=== PATIENT | female | born 1945 | race Caucasian/White ===

== ENCOUNTER 2016-10-14 12:40 | Inpatient (IN) ==
[2016-10-14 13:52] LABS: Basophils % 0.2 % (0.0-0.8); Hematocrit 29.7 VOL% (35.7-47.0); Hemoglobin 9.5 GM/DL (12.0-16.0); Immature Granulocytes % 0.5 %; Immature Granulocytes Absolute 0.08 #; Lymphocytes # 0.9 10*3/uL (1.4-4.0); Lymphocytes % 5.6 % (21.3-54.2); Mean Corpuscular Hemoglobin 26 PG (27-34); Mean Corpuscular Volume 79.6 FL (87-102); Mean Platelet Volume 11.8 FL (9.6-12.0); Monocytes # 0.8 10*3/uL (0.11-0.8); Neutrophils # 14.4 10*3/uL (1.4-7.4); Neutrophils % 88.7 % (38.7-73.9); Platelet Count 288 T/CUMM (130-400); Red Blood Count 3.73 MC/CUMM (3.8-5.5); Red Cell Distribution Width 15.3 % (9.3-17.3); White Blood Count 16.2 T/CUMM (4-12)
--- NOTE | 2016-10-14 14:13 | CT Report ---
CT cervical spine wo con Indication: Neck pain. No additional history provided. CT CERVICAL SPINE WITHOUT CONTRAST DLP: 304 mGy*cm. One or more of the following dose reduction techniques was used: Automated exposure control, adjustment of the mA and/or kV according the patient size, or use of iterative reconstruction techniques. Comparison: None Technique: Axial noncontrast CT images of the cervical spine were obtained. Coronal and sagittal reconstructions were provided. Findings: No acute fracture. No subluxation. Disc space narrowing moderate at C3-4 and severe at C5-6. The other disc heights are maintained. No significant bony encroachment on the canal, with mild broad-based endplate osteophyte at C5-C6 flattening the ventral canal slightly. Mild bilateral C5-6 foraminal stenosis. Pulmonary apices are clear. No paraspinous hematoma. No lymphadenopathy. Impression: Degenerative changes. No acute bony injury. PROCEDURE INTERPRETED AT [facility] DEPARTMENT OF RADIOLOGY Final Report Signed by: Yovani Crenshaw M.D.
[2016-10-14] MEDS ORDERED: VANCOMYCIN INJ 1,000 MG in SODIUM CHLORIDE 0.9% 250 ML IV STA (15:27)
--- NOTE | 2016-10-14 15:29 | Emergency Department Note ---
Fan Calderon Brittany, am scribing for, and in the presence of, Dario Bennett MD 13:24. Donald Calderon Doug C, MD, personally performed the services described in this documentation, ascribed by Chloe Chavira in my presence, and it is both accurate and complete 529 . Arrival - Arrival Chief Complaint: Neck Pain / Injury Stated Complaint: pain in neck/stiffness ED Nursing Triage Note: Pt c/o Neck pain with stiffness and increased pain with movement. Denies injury Mode of Arrival: Wheelchair Limitations: No Limitations Source: Patient, RN Notes Reviewed Time Seen by Provider: 10/14/16 13:20 - History of Present Illness HPI Narrative: Patient is a 70-year-old white female who presents to the emergency room complaining of severe neck pain that started 2 days ago. Patient denies any falls or injuries or overexertion that she can think of. She denies any radicular symptoms except for diffuse weakness in her upper extremities. She is not aware of any fever or chills but when she arrived here temperature is 101. She has no history of any malignancies and states has not had any coughing or sore throat. She has had no prior history of neck injury. Onset (ago): day(s) (2) Consistency: constant Severity: moderate Severity scale (1-10): 6 Quality: aching Allergies/Adverse Reactions: Allergies Allergy/AdvReac Type Severity Reaction Status Date / Time morphine Allergy Severe SHORTNESS Verified 03/26/16 08:36 OF BREATH Penicillins Allergy Severe SHORTNESS Verified 03/26/16 08:36 OF BREATH diphenhydramine Allergy Intermediate Anxiety Verified 03/26/16 08:36 [From Benadryl] meperidine [From Demerol] Allergy Intermediate Nausea Verified 03/26/16 08:36 Home Medications: Home Medications Medication Instructions Recorded Confirmed Type Aspirin [Ecotrin] 81 mg PO DAILY 03/26/16 10/14/16 History Pregabalin [Lyrica] 200 mg PO DAILY 03/26/16 10/14/16 History Sertraline [Zoloft] 100 mg PO DAILY 03/26/16 10/14/16 History Sitagliptin Phos/Metformin HCl 1,000 each PO BID 03/26/16 10/14/16 History [Janumet 50-1,000 mg Tablet] Furosemide Tab [Lasix Tab] 40 mg PO DAILY 03/30/16 10/14/16 History Cholecalciferol (Vitamin D3) 1 mg PO QOTHER DAY 04/18/16 10/14/16 History [Vitamin D3] Cyclobenzaprine [Flexeril] 10 mg PO TID 10/14/16 10/14/16 History Review of System - Review of System 12 point system: reviewed and no additional remarkable complaints except as stated - Review of System Constitutional: Present: fever. Absent: chills Eyes: Absent: vision change Head/Ears/Nose/Throat: Absent: nasal drainage, sore throat Respiratory: Absent: respiratory distress Cardiovascular: Absent: chest pain, palpitations Gastrointestinal: Absent: abdominal pain, nausea, vomiting, diarrhea, constipation Genitourinary female: Absent: dysuria, frequency, urgency Musculoskeletal: Present: as per HPI, neck pain. Absent: arm pain, back pain, leg pain Skin: Absent: rash Neurological: Absent: headache Psychiatric: Absent: anxiety, depression Hematological/Lymphatic: Absent: easy bleeding, easy bruising Medical,Surgical,& Family Hx - Medical History Cardio: History of: CAD, [place] Psychological: History of: Anxiety Disorders, Depression Endocrine: History of: Diabetes Mellitus (NIDDM), Dyslipidemia Rheumatology: History of;: Fibromyalgia Genitourinary: History of: Kidney Stones Gastrointestinal: History of: GI Problems (gallstones) Musculoskeletal: History of: Back/Neck Problems, Musculoskeletal Problems - Surgical History Cardiac Surgeries: Sugical HX of: Cardiac Catheterization (STENT X1) Thoracic Surgeries: Patient denies;: Organ Transplant, Lobectomy Neurologic Surgeries: Patient denies: Neurologic Surgery Reproductive Surgeries: Surgical HX of;: Tubal Ligation - Family History Family History: Reports;: Family Cancer (Brother), Family Heart Disease (Father and mother), Family Psychiatric Problems (Brother), Family Stroke (Mother) - Social History Smoking Status: Former smoker Exam Vital Signs: Vital Signs Temperature 101.0 F H 10/14/16 13:53 Pulse Rate 106 H 10/14/16 13:53 Respiratory Rate 18 10/14/16 13:53 Blood Pressure 126/78 10/14/16 13:53 O2 Sat by Pulse Oximetry 93 L 10/14/16 12:53 - General General appearance: alert, in no apparent distress - Head Head exam: Present: atraumatic, normocephalic, normal inspection - Eye Eye exam: Present: normal appearance, PERRL, EOMI - ENT ENT exam: Present: normal exam, normal oropharynx, mucous membranes moist - Neck Neck exam: Present: trachea midline, meningismus. Absent: full ROM (limited secondary to pain), tenderness - Chest Chest inspection: Present: normal inspection, symmetric chest wall rise - Respiratory Respiratory exam: Present: normal lung sounds bilaterally. Absent: rales, rhonchi, wheezes - Cardiovascular Cardiovascular exam: Present: regular rate, normal rhythm, normal heart sounds. Absent: murmur, rubs, gallop - Abdominal Exam Abdominal exam: Present: soft, normal bowel sounds. Absent: distention, tenderness - Extremities Exam Extremities exam: Present: normal inspection - Back Exam Back exam: Present: normal inspection - Neurological Exam Neurological exam: Present: alert, oriented X3, CN II-XII intact, motor sensory deficit (decreased hand sign poster bilaterally), other (upper extremities symmetric) - Psychiatric Psychiatric exam: Present: normal affect - Skin Skin exam: Present: warm, dry Course Course Narrative: Patient's clinical presentation, laboratory and radiograph findings were discussed with Nadiya who is covering for the hospitalist service. She will see the patient emergency room and evaluate for admission. Results - Labs CBC & BMP: 10/14/16 13:43 Lab Results: I have reviewed the patients labs Labs: Laboratory Tests 10/14/16 13:43 WBC 16.2 H RBC 3.73 L Hgb 9.5 L Hct 29.7 L MCV 79.6 L MCH 26 L MCHC 32.0 RDW 15.3 Plt Count 288 MPV 11.8 Neut % (Auto) 88.7 H Lymph % (Auto) 5.6 L [place] % (Auto) 5.0 Eos % (Auto) 0.0 Baso % (Auto) 0.2 Neut # (Auto) 14.4 H Lymph # (Auto) 0.9 L [place] # (Auto) 0.8 Eos # (Auto) 0.0 Baso # (Auto) 0.0 Immature Gran % 0.5 Nucleated RBC % 0.0 Immature Gran # 0.08 Nucleated RBCs # 0.00 Laboratory Tests 10/14/16 13:43 C-Reactive Protein 31.10 H - Diagnostic Findings Procedure: CT: report reviewed by me (Cervical Spine CT: Degenerative changes. No acute bony injury.) Disposition Clinical Impression: Torticollis, Febrile illness, acute Case discussed with: patient Disposition: Still a Patient Condition: Stable Time of Disposition: 15:29
[2016-10-14] MEDS ORDERED: KETOROLAC 30 MG/1 ML VIAL ONE (16:25)
[2016-10-14] MEDS ORDERED: VANCOMYCIN 1,000 MG VIAL ONE (16:35)
[2016-10-14] MEDS ORDERED: KETOROLAC 30 MG/1 ML VIAL IV ONE (16:57)
[2016-10-14] MEDS: ASPIRIN EC 81 MG TABLET PO SCH (17:14)
[2016-10-14] MEDS: SERTRALINE 100 MG TABLET PO SCH (17:14)
[2016-10-14] MEDS: VITAMIN E 1000 UNIT CAPSULE PO SCH (17:14)
[2016-10-14] MEDS: PREGABALIN 100 MG CAPSULE PO SCH (17:14)
[2016-10-14] MEDS: FUROSEMIDE 40 MG TABLET PO SCH (17:14)
[2016-10-14] MEDS ORDERED: GLUCAGON 1 MG VIAL IM PRN (17:19)
[2016-10-14] MEDS ORDERED: DEXTROSE 50% 25 GM/50 ML VIAL IV PRN (17:19)
--- NOTE | 2016-10-14 17:58 | XRay Report ---
XR chest 1V portable Indication: Fever. Chest one view: Comparison 04/13/2016. Heart size and mediastinal contours remain normal. There is calcified atheromatous disease present. No focal infiltrates. Chronic scarring of the infrahilar lungs is stable. Healing or healed right humerus fractures present. Impression: No acute cardiopulmonary disease when compared to 04/13/2016. Right humerus fracture, healed. PROCEDURE INTERPRETED AT [facility] DEPARTMENT OF RADIOLOGY Final Report Signed by: Yovani Crenshaw M.D.
--- NOTE | 2016-10-14 18:27 | Hospitalist History & Physical ---
Assessment and Plan - Time spent with patient Time spent with patient: Less than 30 minutes (1) Leukocytosis Status: Acute Assessment and plan: 70-year-old white female with history of polymyalgia rheumatica, fibromyalgia, diabetes admitted with leukocytosis and febrile illness with acute neck pain. CT scan was negative, chest x-ray negative. UA is pending. She denies urinary symptoms. Patient will be started on Merrem and vancomycin due to penicillin allergy. This will cover a [employer] infection until ruled out. MRI of the head and neck with and without contrast is ordered for in the morning. she also has some degenerative disc disease that is severe in the C4-5 and 6 regions which could be causing some muscle spasms. We will go ahead and order Robaxin, nonnarcotic pain medications, and heating pad for comfort. Labs and blood cultures are still pending. Diabetes--we will restart her home meds other than her metformin. Start sliding scale insulin and monitor accordingly. Polymyalgia rheumatica and fibromyalgia--we will restart her home medicines. This is all been discussed with Dr. Kim the admitting hospitalist. Further recommendations to follow. Current Visit: Yes (2) Neck pain, acute Status: Acute Current Visit: Yes (3) Diabetes mellitus Status: Acute Current Visit: No Qualifiers: Diabetes mellitus type: type 2 Diabetes mellitus complication status: without complication (4) PMR (polymyalgia rheumatica) Status: Chronic Current Visit: No (5) Febrile illness, acute Status: Acute Current Visit: Yes History of Present Illness Chief complaint: Neck pain History of present illness: Ms. Lee is a 70 year old female with history of rheumatoid arthritis, diabetes , and fibromyalgia presenting to the ED with increasing complaints of neck pain. Patient states the pain started about a day and a half ago and is progressively worsened. This morning when she woke up she could not turn her head. And she rates the pain a 10 out of 10 and it is unrelenting. The pain is associated with blurred vision and headaches. She is also complaining of some upper extremity weakness that is new as well. Patient feels like her throat swelled up to the point where she has trouble swallowing but it is not painful when she swallows. Patient denies any trauma or injuries. She denies cough, chest pain, shortness of breath, abdominal pain, back pain, constipation or diarrhea, or lower extremity swelling. Patient CT scan shows no acute fracture and no subluxation. There is disc space narrowing at C3-4 and severe at C5 and 6. There is no bony encroachment on the canal with mild broad-based endplate osteophyte at C5 and 6. She has mild bilateral C5-6 foraminal stenosis. No paraspinous hematoma or lymphadenopathy. Patient's chest x-ray is normal. Patient has a 101 fever with tachycardia in the low 100s and her white count is 16.5. Patient's case has been discussed with ER physician Dr. Bennett and admitting physician Dr. Burns it was felt the patient should be admitted for further evaluation. Home Medications Medication Instructions Recorded Confirmed Type Aspirin [Ecotrin] 81 mg PO DAILY 03/26/16 10/14/16 History Pregabalin [Lyrica] 200 mg PO DAILY 03/26/16 10/14/16 History Sertraline [Zoloft] 100 mg PO DAILY 03/26/16 10/14/16 History Sitagliptin Phos/Metformin HCl 1,000 each PO BID 03/26/16 10/14/16 History [Janumet 50-1,000 mg Tablet] Furosemide Tab [Lasix Tab] 40 mg PO DAILY 03/30/16 10/14/16 History Cholecalciferol (Vitamin D3) 1 mg PO QOTHER DAY 04/18/16 10/14/16 History [Vitamin D3] Cyclobenzaprine [Flexeril] 10 mg PO TID 10/14/16 10/14/16 History Allergies Allergy/AdvReac Type Severity Reaction Status Date / Time morphine Allergy Severe SHORTNESS Verified 03/26/16 08:36 OF BREATH Penicillins Allergy Severe SHORTNESS Verified 03/26/16 08:36 OF BREATH diphenhydramine Allergy Intermediate Anxiety Verified 03/26/16 08:36 [From Benadryl] meperidine [From Demerol] Allergy Intermediate Nausea Verified 03/26/16 08:36 Medical,Surgical,& Family Hx - Medical History Cardio: History of: CAD, [place] Psychological: History of: Anxiety Disorders, Depression Endocrine: History of: Diabetes Mellitus (NIDDM), Dyslipidemia Rheumatology: History of;: Fibromyalgia Genitourinary: History of: Kidney Stones Gastrointestinal: History of: GI Problems (gallstones) Musculoskeletal: History of: Back/Neck Problems, Musculoskeletal Problems - Surgical History Cardiac Surgeries: Sugical HX of: Cardiac Catheterization (STENT X1) Thoracic Surgeries: Patient denies;: Organ Transplant, Lobectomy Neurologic Surgeries: Patient denies: Neurologic Surgery Reproductive Surgeries: Surgical HX of;: Tubal Ligation - Family History Family History: Reports;: Family Cancer (Brother), Family Heart Disease (Father and mother), Family Psychiatric Problems (Brother), Family Stroke (Mother) - Social History Smoking Status: Former smoker Type of Drug Use: None Marital Status: Lives With:: Spouse Review of systems: Complete 10 system review of systems was obtained and pertinent positives and negatives are per HPI. Exam - Constitutional Vitals: Period Temp Pulse Resp BP Sys/Tabor Pulse Ox Last 24 Hr 89 18 123/75 98 Exam: Constitutional System: Mild distress due to pain. No tremulousness. Head: Normocephalic, atraumatic. Ears, Nose and Throat System: No evidence of Otitis or Mastoiditis. No epistaxis or discharge Eyes System: Pupils equal, round, and reactive. Extraocular muscles intact. Neck: Supple, without adenopathy, patient is point tender in the paraspinous region at the base of her skull. She is nontender along the spinous processes. Patient has decreased range of motion of the head and neck limited by pain. No jugular venous distention. No thyromegaly, neck mass, or prior surgery apparent. Respiratory System: Chest clear to auscultation. Cardiovascular System: Heart with regular rate and rhythm. No murmur. GI System: Abdomen soft, nontender. Normo active bowel sounds present. Musculoskeletal System: limbs with no pedal edema. Full distal pulses. Neurological System: No discernable sensory deficit. No aphasia Psychiatric System: Conversation is rational Results - Labs CBC & BMP: 10/14/16 13:43 Lab Results: I have reviewed the past 24 hour labs - Diagnostic Findings Procedure: Chest x-ray: report reviewed by me (No acute process), CT: report reviewed by me (CT of the head showing degenerative disc disease)
[2016-10-14 19:34] LABS: Osmolality,Calculated 276.2 MOS/KG (273-304); Potassium 2.9 MMOL/L (3.5-5.1)
[2016-10-14 19:37] LABS: Apearance,Urine CLOUDY (Clear); Bacteria,Urine Occasional /HPF (Few); Bilirubin,Urine Negative (Negative); Blood, Urine Small mg/dL (Negative); Glucose,Urine (UA) 50 mg/dL (Negative); Hyaline Casts,Urine 7 /LPF (0-3); Ketones,Urine Negative (Negative); Nitrite,Urine Negative (Negative); Protein,Urine Negative; RBC,Urine 8 /HPF (0-4); Renal Epithelial Cells,Urine Occasional /HPF (<1); Squamous Epithelial Cell,Urine Occasional /HPF (0-10); Urine Color Yellow (Yellow); Urine Specific Gravity 1.011 (1.001-1.035); Urine Urobilinogen < 2.0 EU/DL (0.2-1.0); WBC,Urine 8 /HPF (0-6)
[2016-10-14] MEDS: MEROPENEM 500 MG in SODIUM CHLORIDE 0.9% 100 ML IV SCH (20:37)
[2016-10-14] MEDS ORDERED: metFORMIN 500 MG TABLET PO SCH (21:00)
[2016-10-14] MEDS: INSULIN LISPRO 100 UNIT/ML SUBCUT SCH (21:20)
[2016-10-14] MEDS: CYCLOBENZAPRINE 10 MG TABLET PO SCH (21:20)
[2016-10-14] MEDS: sitaGLIPtin 25 MG TABLET PO SCH (21:20)
[2016-10-15] MEDS: traMADol 50 MG TABLET PO PRN ×4 (04:05→17:19)
[2016-10-15 05:28] LABS: Basophils % 0.2 % (0.0-0.8); Eosinophils # 0.1 10*3/uL (0.0-0.87); Eosinophils % 0.8 % (0.00-10.9); Hematocrit 24.3 VOL% (35.7-47.0); Hemoglobin 7.8 GM/DL (12.0-16.0); Immature Granulocytes % 0.5 %; Immature Granulocytes Absolute 0.05 #; Lymphocytes # 1.8 10*3/uL (1.4-4.0); Lymphocytes % 17.8 % (21.3-54.2); Mean Corpuscular HGB Conc 32.1 GM/DL (32-36); Mean Corpuscular Hemoglobin 25 PG (27-34); Mean Corpuscular Volume 78.1 FL (87-102); Mean Platelet Volume 12.1 FL (9.6-12.0); Monocytes % 10.5 % (1.7-12.7); Neutrophils % 70.2 % (38.7-73.9); Platelet Count 249 T/CUMM (130-400); Red Blood Count 3.11 MC/CUMM (3.8-5.5); Red Cell Distribution Width 15.6 % (9.3-17.3); White Blood Count 9.9 T/CUMM (4-12)
[2016-10-15 06:12] LABS: Bilirubin,Total 0.4 MG/DL (0.2-1.0); Osmolality,Calculated 277.1 MOS/KG (273-304); Potassium 2.9 MMOL/L (3.5-5.1); Total Protein 6.3 G/DL (6.4-8.3)
[2016-10-15 08:02] LABS: Basophils % 0.3 % (0.0-0.8); Eosinophils # 0.1 10*3/uL (0.0-0.87); Eosinophils % 0.8 % (0.00-10.9); Hematocrit 26.6 VOL% (35.7-47.0); Hemoglobin 8.3 GM/DL (12.0-16.0); Immature Granulocytes % 0.2 %; Immature Granulocytes Absolute 0.02 #; Lymphocytes # 1.8 10*3/uL (1.4-4.0); Lymphocytes % 18.8 % (21.3-54.2); Mean Corpuscular HGB Conc 31.2 GM/DL (32-36); Mean Corpuscular Hemoglobin 25 PG (27-34); Mean Corpuscular Volume 80.1 FL (87-102); Monocytes # 0.6 10*3/uL (0.11-0.8); Monocytes % 6.8 % (1.7-12.7); Neutrophils # 6.8 10*3/uL (1.4-7.4); Neutrophils % 73.1 % (38.7-73.9); Platelet Count 269 T/CUMM (130-400); Red Blood Count 3.32 MC/CUMM (3.8-5.5); Red Cell Distribution Width 15.6 % (9.3-17.3); White Blood Count 9.3 T/CUMM (4-12)
[2016-10-15] MEDS: sitaGLIPtin 25 MG TABLET PO SCH (08:18)
[2016-10-15] MEDS: FUROSEMIDE 40 MG TABLET PO SCH (08:18)
[2016-10-15] MEDS: INSULIN LISPRO 100 UNIT/ML SUBCUT SCH ×5 (08:18→20:55)
[2016-10-15] MEDS: PREGABALIN 100 MG CAPSULE PO SCH (08:18)
[2016-10-15] MEDS: SERTRALINE 100 MG TABLET PO SCH (08:19)
[2016-10-15] MEDS: CYCLOBENZAPRINE 10 MG TABLET PO SCH ×3 (08:19→20:55)
[2016-10-15] MEDS: ASPIRIN EC 81 MG TABLET PO SCH (08:19)
[2016-10-15] MEDS: MEROPENEM 500 MG in SODIUM CHLORIDE 0.9% 100 ML IV SCH ×2 (08:19→20:55)
[2016-10-15] MEDS ORDERED: POTASSIUM CHLORIDE 20 MEQ PACK PO ONE ×2 (09:51→12:22)
[2016-10-15] MEDS: SODIUM CHLORIDE 0.9% 1,000 ML IV SCH (10:30)
--- NOTE | 2016-10-15 12:11 | Hospitalist Progress Note ---
Assessment and Plan - Time spent with patient Time spent with patient: Greater than 30 minutes (1) Sepsis Status: Acute Assessment and plan: Continue broad-spectrum antibiotics. Infection is not very clear at this point however will order a lumbar puncture for tomorrow. Current Visit: Yes (2) Neck pain, acute Status: Acute Assessment and plan: Awaiting MRI. CT revealed degenerative disease which may likely be the source. Current Visit: Yes (3) Hyponatremia Status: Acute Assessment and plan: Stop Furosemide, start fluid. Current Visit: Yes (4) Hypokalemia Status: Acute Assessment and plan: Administer potassium Current Visit: Yes (5) Hypochloremia Status: Acute Assessment and plan: See above. Current Visit: Yes (6) Acute kidney injury superimposed on CKD Status: Acute Assessment and plan: Stop lasix, start fluids, obtain renal US. Current Visit: Yes (7) Microcytic anemia Status: Acute Assessment and plan: Obtain anemia panel. Current Visit: No (8) Diabetes mellitus Status: Acute Assessment and plan: Continue current management. Current Visit: No Qualifiers: Diabetes mellitus type: type 2 Diabetes mellitus complication status: without complication (9) PMR (polymyalgia rheumatica) Status: Chronic Current Visit: No Hospitalist: Subjective Interval history: No overnight events, continues to complain of pain. Exam - Constitutional Vitals: Period Temp Pulse Resp BP Sys/Tabor Pulse Ox Last 24 Hr 97.8 F-98.8 F 62-94 16-18 92-133/52-75 93-98 General appearance: no acute distress - Head Head exam: Present: normocephalic, atraumatic - Eye Eye exam: Present: EOMI Pupils: Present: MERT - ENT ENT exam: Present: normal exam - Neck Neck exam: Present: normal inspection - Respiratory Respiratory exam: Present: clear to auscultation bilaterally. Absent: rhonchi, wheezes - Cardiovascular Cardiovascular exam: Present: regular rate and rhythm. Absent: gallop, rubs, systolic murmur - GI/Abdominal GI/Abdominal exam: Present: normal bowel sounds, soft. Absent: distended, firm , guarding, tenderness, rebound - Extremities Exam Extremities exam: Present: normal inspection. Absent: calf tenderness, edema Results - Labs CBC & BMP: 10/15/16 06:55 10/15/16 04:54 Lab Results: I have reviewed the past 24 hour labs
--- NOTE | 2016-10-15 13:07 | Ultrasound Report ---
US renal Bilateral Indication: Acute kidney injury. Elevated creatinine. Sepsis. RENAL ULTRASOUND: Grayscale and color Doppler imaging the kidneys performed. Right kidney measures 100 x 46 x 48 mm. Left kidney measures 91 x 56 x 63 mm. No hydronephrosis, mass, cyst or calcification identified on either side. Color Doppler flow at both renal josefina documented. There is a well-defined echogenic homogeneous hyperechoic 27 x 25 x 20 mm lesion along the posterior cortex of the spleen. On a CT PE study from 03/26/2016, this was present and measured 22 mm diameter. Impression: Negative ultrasound the kidneys. Small lesion within the posterior cortex of the spleen, relatively stable since 03/26/2016. Suspect splenic hemangioma. PROCEDURE INTERPRETED AT [facility] DEPARTMENT OF RADIOLOGY Final Report Signed by: Yovani Crenshaw M.D.
[2016-10-15] MEDS: ACETAMINOPHEN 325 MG TABLET PO PRN (20:54)
[2016-10-16] MEDS: SODIUM CHLORIDE 0.9% 1,000 ML IV SCH ×3 (00:44→21:00)
[2016-10-16 06:56] LABS: Basophils % 0.3 % (0.0-0.8); Eosinophils # 0.2 10*3/uL (0.0-0.87); Eosinophils % 1.9 % (0.00-10.9); Hematocrit 23.8 VOL% (35.7-47.0); Hemoglobin 7.5 GM/DL (12.0-16.0); Immature Granulocytes % 0.4 %; Immature Granulocytes Absolute 0.03 #; Lymphocytes # 2.1 10*3/uL (1.4-4.0); Lymphocytes % 26.9 % (21.3-54.2); Mean Corpuscular HGB Conc 31.5 GM/DL (32-36); Mean Corpuscular Hemoglobin 25 PG (27-34); Mean Corpuscular Volume 79.9 FL (87-102); Mean Platelet Volume 11.8 FL (9.6-12.0); Monocytes # 0.7 10*3/uL (0.11-0.8); Monocytes % 8.9 % (1.7-12.7); Neutrophils # 4.9 10*3/uL (1.4-7.4); Neutrophils % 61.6 % (38.7-73.9); Platelet Count 222 T/CUMM (130-400); Red Blood Count 2.98 MC/CUMM (3.8-5.5); Red Cell Distribution Width 15.2 % (9.3-17.3); White Blood Count 7.9 T/CUMM (4-12)
[2016-10-16 07:32] LABS: Calcium 7.9 MG/DL (8.5-10.1); Osmolality,Calculated 279.9 MOS/KG (273-304); Potassium 2.9 MMOL/L (3.5-5.1)
[2016-10-16] MEDS ORDERED: SODIUM CHLORIDE 0.9% 250 ML IV PRN (08:21)
[2016-10-16 08:24] LABS: Alanine Aminotransferase 13 U/L (13-56); Albumin 2.7 G/DL (3.4-5.0); Alkaline Phosphatase 99 U/L (45-117); Aspartate Amino Transferase 16 U/L (0-37); Bilirubin,Total < 0.39 MG/DL (0.2-1.0); Blood Urea Nitrogen 51 MG/DL (7-18); Calcium 7.9 MG/DL (8.5-10.1); Glucose 239 MG/DL (74-106); Osmolality,Calculated 279.9 MOS/KG (273-304); Potassium 2.9 MMOL/L (3.5-5.1); Sodium 129 MMOL/L (136-145); Total Protein 5.8 G/DL (6.4-8.3)
[2016-10-16] MEDS ORDERED: VANCOMYCIN INJ 1,250 MG in SODIUM CHLORIDE 0.9% 250 ML IV SCH (09:00)
[2016-10-16] MEDS: SERTRALINE 100 MG TABLET PO SCH (09:03)
[2016-10-16] MEDS: PREGABALIN 100 MG CAPSULE PO SCH (09:03)
[2016-10-16] MEDS: VITAMIN E 1000 UNIT CAPSULE PO SCH (09:03)
[2016-10-16] MEDS: ASPIRIN EC 81 MG TABLET PO SCH (09:03)
[2016-10-16] MEDS: CYCLOBENZAPRINE 10 MG TABLET PO SCH ×3 (09:04→20:57)
[2016-10-16] MEDS: MEROPENEM 500 MG in SODIUM CHLORIDE 0.9% 100 ML IV SCH ×2 (09:05→20:57)
[2016-10-16] MEDS: INSULIN LISPRO 100 UNIT/ML SUBCUT SCH ×4 (09:23→20:56)
[2016-10-16 09:41] LABS: % Iron Saturation 6.8 % (18-50); Ferritin 60.6 ng/ml (8-252)
[2016-10-16] MEDS: ACETAMINOPHEN 325 MG TABLET PO PRN (09:45)
--- NOTE | 2016-10-16 09:45 | Hospitalist Progress Note ---
Assessment and Plan - Time spent with patient Time spent with patient: Greater than 30 minutes (1) Sepsis Status: Acute Assessment and plan: Resolved. Continue broad-spectrum antibiotics. Infection is not very clear at this point however will order a lumbar puncture. Current Visit: Yes (2) Neck pain, acute Status: Acute Assessment and plan: Awaiting MRI. CT revealed degenerative disease which may likely be the source. Current Visit: Yes (3) Hyponatremia Status: Acute Assessment and plan: Continue fluid. Current Visit: Yes (4) Hypokalemia Status: Acute Assessment and plan: Administer potassium Current Visit: Yes (5) Hypochloremia Status: Acute Assessment and plan: See above. Current Visit: Yes (6) Acute kidney injury superimposed on CKD Status: Acute Assessment and plan: Appears to be stable at current level. May be her new norm. Current Visit: Yes (7) Microcytic anemia Status: Acute Assessment and plan: Appears to be Iron deficiency. Obtain stool heme occults. Administer 2 units prbcs Current Visit: No (8) Diabetes mellitus Status: Acute Assessment and plan: Continue current management. Current Visit: No Qualifiers: Diabetes mellitus type: type 2 Diabetes mellitus complication status: without complication (9) PMR (polymyalgia rheumatica) Status: Chronic Current Visit: No Hospitalist: Subjective Interval history: No new complaints, no overnight events. Exam - Constitutional Vitals: Period Temp Pulse Resp BP Sys/Tabor Pulse Ox Last 24 Hr 97.2 F-98.0 F 71-74 18-20 110-126/58-68 95-99 General appearance: no acute distress - Head Head exam: Present: normocephalic, atraumatic - Eye Eye exam: Present: EOMI Pupils: Present: MERT - ENT ENT exam: Present: normal exam - Neck Neck exam: Present: normal inspection - Respiratory Respiratory exam: Present: clear to auscultation bilaterally. Absent: rhonchi, wheezes - Cardiovascular Cardiovascular exam: Present: regular rate and rhythm. Absent: gallop, rubs, systolic murmur - GI/Abdominal GI/Abdominal exam: Present: normal bowel sounds, soft. Absent: distended, firm , guarding, tenderness, rebound - Extremities Exam Extremities exam: Present: normal inspection. Absent: calf tenderness, edema Results - Labs CBC & BMP: 10/16/16 06:33 10/16/16 06:33 Lab Results: I have reviewed the past 24 hour labs
[2016-10-16 10:03] LABS: Folate 10.1 NG/ML (5.4-24.0)
[2016-10-16] MEDS: POTASSIUM CHLORIDE RIDER 10 MEQ in PREMIX 1 EACH IV SCH ×8 (10:19→18:31)
--- NOTE | 2016-10-16 14:56 | Magnetic Resonance Report ---
Exam: MR head/brain w and wo con Date: 10/16/2016 4:00 AM Comparison: None Indication: Headache, blurred vision upper extremity weakness, Technique:[Multiple acquisitions were obtained including sagittal T1, coronal T1 scans following injection of 18 cc of Dotarem, and axial ADC, diffusion, FLAIR, T2, GRE, and T1 scans before and after injection of contrast. Scans were obtained on a 1.5 Chanda magnet.] Findings: The ventricles are normal in size with no midline displacement. Empty sella with the cerebellar tonsils are normal in their location. No acute infarction is identified on the diffusion scans. No evidence of hemorrhage, mass, extracerebral collection, or abnormal enhancement. Diffuse atrophy and minimal FLAIR/T2 hyperintensities. 3.85 mm retention cyst in the left maxillary sinus with minimal mucosal thickening in the right ethmoid air cells. No acute findings in the orbits, temporal bones, [place], or venous sinuses. Impression: Motion artifact limits exam. No acute infarction identified. Empty sella. Diffuse atrophy with minimal microvascular disease. T2 hyperintensities can also be associated with demyelinating disease, vasculitis, migraines, viral illness, etc. Minimal sinusitis. PROCEDURE INTERPRETED AT [facility] DEPARTMENT OF RADIOLOGY Final Report Signed by: Dr. Lorna Vazquez
--- NOTE | 2016-10-16 15:15 | Magnetic Resonance Report ---
MRI of the cervical spine without and with contrast. Technique: Sagittal T2, sagittal T2 fat-sat, sagittal T1, axial T1, axial T2 and axial gradient echo sequences of the cervical spine were performed without contrast. Sagittal and axial scans were obtained following the injection of 18 cc of Dotarem Post contrast scans were obtained with fat saturation. Scans were obtained on a 1.5 Chanda magnet. Clinical history: Neck pain, upper extremity weakness, abnormal CT Comparison: CT cervical spine 10/14/2016 Findings: The scans are degraded by motion artifact which limits the exam, especially evaluation of the spinal cord on the axial scans. On the sagittal scans no no conclusive spinal cord pathology is identified.. The vertebral bodies maintain a normal height and alignment. No acute fracture with evidence of disc degeneration. The craniocervical junction is unremarkable. Empty sella. C2-3: No disc protrusion or spinal stenosis with minimal left foraminal stenosis. C3-4: Diffuse osteophyte/disc complex which contacts the thecal sac. Disc space narrowing with minimal spinal stenosis and moderate bilateral foraminal stenosis. C4-5: Diffuse osteophyte/disc complex which compresses the thecal sac. Disc space narrowing with minimal spinal stenosis and bilateral foraminal stenosis. C5-6: Diffuse osteophyte/disc complex which compresses the thecal sac. Disc space narrowing with minimal spinal stenosis and moderate to severe bilateral foraminal stenosis. C6-7: Diffuse osteophyte/disc complex which compresses the thecal sac. Minimal spinal stenosis and bilateral foraminal stenosis. C7-T1: No disc protrusion, spinal stenosis, or foraminal stenosis. Impression: Unfortunately the scans are degraded by motion artifact. Probable motion artifact on the axial T2*GRE scans since the spinal cord has a more unremarkable appearance on the additional series. However this finding makes it more difficult to evaluate for possible myelomalacia, demyelinating disease, etc. No acute fracture identified. Multilevel DDD as above noted. Empty sella. PROCEDURE INTERPRETED AT [facility] DEPARTMENT OF RADIOLOGY Final Report Signed by: Dr. Lorna Vazquez
[2016-10-16] MEDS ORDERED: POTASSIUM CHLORIDE RIDER 10 MEQ in PREMIX 1 EACH IV SCH (18:30)
[2016-10-17] MEDS: SODIUM CHLORIDE 0.9% 1,000 ML IV SCH (05:12)
[2016-10-17 06:34] LABS: Calcium 8.1 MG/DL (8.5-10.1); Osmolality,Calculated 287.1 MOS/KG (273-304); Potassium 3.7 MMOL/L (3.5-5.1)
[2016-10-17 06:47] LABS: Basophils % 0.5 % (0.0-0.8); Eosinophils # 0.2 10*3/uL (0.0-0.87); Eosinophils % 2.9 % (0.00-10.9); Hematocrit 21.9 VOL% (35.7-47.0); Immature Granulocytes % 0.3 %; Immature Granulocytes Absolute 0.02 #; Lymphocytes # 1.7 10*3/uL (1.4-4.0); Lymphocytes % 26.6 % (21.3-54.2); Mean Corpuscular Hemoglobin 25 PG (27-34); Mean Corpuscular Volume 79.1 FL (87-102); Mean Platelet Volume 12.1 FL (9.6-12.0); Monocytes # 0.6 10*3/uL (0.11-0.8); Monocytes % 8.9 % (1.7-12.7); Neutrophils # 3.8 10*3/uL (1.4-7.4); Neutrophils % 60.8 % (38.7-73.9); Platelet Count 230 T/CUMM (130-400); Red Blood Count 2.77 MC/CUMM (3.8-5.5); Red Cell Distribution Width 15.3 % (9.3-17.3); White Blood Count 6.2 T/CUMM (4-12)
[2016-10-17] MEDS: INSULIN LISPRO 100 UNIT/ML SUBCUT SCH ×2 (08:45→11:27)
[2016-10-17] MEDS: MEROPENEM 500 MG in SODIUM CHLORIDE 0.9% 100 ML IV SCH (08:45)
[2016-10-17] MEDS: PREGABALIN 100 MG CAPSULE PO SCH (08:46)
[2016-10-17] MEDS: SERTRALINE 100 MG TABLET PO SCH (08:46)
[2016-10-17] MEDS: ASPIRIN EC 81 MG TABLET PO SCH (08:46)
[2016-10-17] MEDS: CYCLOBENZAPRINE 10 MG TABLET PO SCH (08:46)
[2016-10-17] MEDS ORDERED: FERROUS SULFATE 325 MG TABLET PO SCH (09:00)
[2016-10-17] MEDS ORDERED: DOCUSATE SODIUM 100 MG CAPSULE PO SCH (09:00)
[2016-10-17 09:54] VITALS: BP 146/65
--- NOTE | 2016-10-17 10:57 | Discharge Summary ---
Hospital Course - Hospital Course Hospital Course: Ms. Lee is a 70-year-old female who was admitted for evaluation of neck pain and fever. She was found to have acute kidney injury, hyponatremia and hypokalemia. Lasix was discontinued. She was initiated on IV normal saline and broad-spectrum antibiotics. 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 She had a CT of her neck which revealed degenerative disc disease. An MRI of her neck and brain confirmed degenerative disc disease and showed no acute findings however was limited by motion artifact. Patient refused lumbar puncture. Patient had anemia and anemia panel revealed iron deficiency anemia. Her hemoglobin was also noted to drop eventually to 7 however she refused blood products twice. There were no signs of active bleeding. At time of discharge her electrolytes had normalized. Her kidney function responded to the fluids and was 2.8 at discharge. She was encouraged to take Lasix as needed, for lower extremity edema, for no longer than 3 days and to have at least 4 to 7 days of break between the next course. She was prescribed iron tablets for her anemia. At discharge, she was afebrile with no leukocytosis. The source of infection was not identified however the patient will be discharged with Levaquin and clindamycin for an additional 7 days. She was encouraged to return to the emergency department if she felt lightheaded, fainted, developed fever, chest pain, shortness of breath or any sign of bleeding. By discharge she had met maximum benefit of hospitalization. - Time spent with patient Time with patient DS: Greater than 30 minutes Diagnosis - Discharge Diagnosis (1) Sepsis Status: Acute (2) Neck pain, acute Status: Acute (3) Hyponatremia Status: Acute (4) Hypokalemia Status: Acute (5) Hypochloremia Status: Acute (6) Acute kidney injury superimposed on CKD Status: Acute (7) Microcytic anemia Status: Acute (8) Diabetes mellitus Status: Acute (9) PMR (polymyalgia rheumatica) Status: Chronic Discharge Plan - Discharge Data Disposition: Disch To Home/Self Care Condition at Discharge: Stable Discharge Diet: advance to your usual diet Activity: resume usual activities as tolerated Hygiene: no restrictions - Discharge Medications New Docusate Sodium Cap [Colace Cap] 100 mg PO BID #60 capsule Ferrous Sulfate Tab [Feosol Original Tab] 325 mg PO TID #90 tablet Levofloxacin Tab [Levaquin Tab] 250 mg PO DAILY #7 tablet Clindamycin HCl [Clindamycin Cap] 600 mg PO Q6HR #28 capsule HYDROcodone/ACETAMIN 10-325 [[place] 10-325] 1 tablet PO Q4H PRN #30 tablet PRN Reason: Pain Moderate (4-7) Continue Sertraline [Zoloft] 100 mg PO DAILY Aspirin [Ecotrin] 81 mg PO DAILY Sitagliptin Phos/Metformin HCl [Janumet 50-1,000 mg Tablet] 1,000 each PO BID Pregabalin [Lyrica] 200 mg PO DAILY Furosemide Tab [Lasix Tab] 40 mg PO DAILY Cyclobenzaprine [Flexeril] 10 mg PO TID PRN PRN Reason: Muscle Spasm metOLazone [Metolazone] 5 mg DAILY Cholecalciferol (Vitamin D3) [Vitamin D3] 1 mg PO QOTHER DAY - Follow Up or Referral - Forms/Instructions Instructions: Spasmodic Torticollis (DC), Leukocytosis (DC) Exam - Constitutional Vitals: Period Temp Pulse Resp BP Sys/Tabor Pulse Ox Last 24 Hr 97.6 F-98.3 F 60-73 16-18 114-146/57-73 96-100 General appearance: normal weight, no acute distress - Head Head exam: Present: normal inspection, normocephalic, atraumatic - Eye Eye exam: Present: EOMI Pupils: Present: MERT - ENT ENT exam: Present: normal exam - Neck Neck exam: Present: normal inspection - Respiratory Respiratory exam: Present: clear to auscultation bilaterally - Cardiovascular Cardiovascular exam: Present: regular rate and rhythm - GI/Abdominal GI/Abdominal exam: Present: normal bowel sounds - Extremities Exam Extremities exam: Present: normal inspection Discharge Results Procedures and tests throughout hospitalization: Pending Orders 10/16/16 08:02 Fungal Culture w/ Prep Stat 10/16/16 08:47 Red Blood Cells Leuko Red Routine Transferrin Stat Type and Screen Routine 10/16/16 14:00 CSF Culture and Gram Stain Stat Meningitis Ags w/CSF Cult/Smea Stat Viral Culture, Non-Respiratory Stat 10/16/16 22:30 Occult Blood, Stool Stat Labs on day of discharge: Labs from last 24 hours 10/17/16 10/17/16 10/17/16 07:24 05:49 05:49 WBC 6.2 RBC 2.77 L Hgb 7.0 L Hct 21.9 L MCV 79.1 L MCH 25 L MCHC 32.0 RDW 15.3 Plt Count 230 MPV 12.1 H Neut % (Auto) 60.8 Lymph % (Auto) 26.6 [place] % (Auto) 8.9 Eos % (Auto) 2.9 Baso % (Auto) 0.5 Neut # (Auto) 3.8 Lymph # (Auto) 1.7 [place] # (Auto) 0.6 Eos # (Auto) 0.2 Baso # (Auto) 0.0 Immature Gran % 0.3 Nucleated RBC % 0.0 Immature Gran # 0.02 Nucleated RBCs # 0.00 Sodium 135 L Potassium 3.7 Chloride 98 Carbon Dioxide 27 Anion Gap 13.7 BUN 43 H Creatinine 2.80 H POC Creatinine GFR Calculation 19 POC Estimated GFR (eGFR) BUN/Creatinine Ratio 15.00 Glucose 216 H POC Glucose 252 H Calculated Osmolality 287.1 Calcium 8.1 L 10/16/16 10/16/16 10/16/16 20:41 17:01 14:58 WBC RBC Hgb Hct MCV MCH MCHC RDW Plt Count MPV Neut % (Auto) Lymph % (Auto) [place] % (Auto) Eos % (Auto) Baso % (Auto) Neut # (Auto) Lymph # (Auto) [place] # (Auto) Eos # (Auto) Baso # (Auto) Immature Gran % Nucleated RBC % Immature Gran # Nucleated RBCs # Sodium Potassium Chloride Carbon Dioxide Anion Gap BUN Creatinine POC Creatinine GFR Calculation POC Estimated GFR (eGFR) BUN/Creatinine Ratio Glucose POC Glucose 237 H 221 H 264 H Calculated Osmolality Calcium 10/16/16 10/16/16 14:30 10:44 WBC RBC Hgb Hct MCV MCH MCHC RDW Plt Count MPV Neut % (Auto) Lymph % (Auto) [place] % (Auto) Eos % (Auto) Baso % (Auto) Neut # (Auto) Lymph # (Auto) [place] # (Auto) Eos # (Auto) Baso # (Auto) Immature Gran % Nucleated RBC % Immature Gran # Nucleated RBCs # Sodium Potassium Chloride Carbon Dioxide Anion Gap BUN Creatinine POC Creatinine 1.80 H GFR Calculation POC Estimated GFR (eGFR) 30 BUN/Creatinine Ratio Glucose POC Glucose 300 H Calculated Osmolality Calcium Preliminary micro results at discharge 10/14/16 15:46 Blood Culture - Preliminary Blood No growth at 1 day 10/14/16 15:46 Blood Culture - Preliminary Blood No growth at 1 day DS: Provider Date of admission: 10/14/16 15:34 Primary care physician: Jayjay Ellison MD Attending physician on admission: Ruthie Burns MD Consults: 10/16/16 08:31 Consult to [facility], Educator [CONS] Routine Reason for Geology Associate: Re-education Consult Comment: patient refusing insulin Discharging clinician: Ruthie Burns MD Expected date of discharge: 10/17/16
== END 2016-10-17 14:00 | disposition home or self-care (01) | DRG 872 ==
LOC: N.ED 12:40 → N.EDINP 15:34 → N.5E 16:10
PROVIDERS: ADMIT Internal Medicine; ATTEND Internal Medicine

== ENCOUNTER 2017-12-20 11:09 | Inpatient (IN) ==
[~2017-12-20 11:09] MED LIST: ASPIRIN 325 MG TABLET PO ONE; DIAZEPAM 5 MG TABLET PO ONE
[2017-12-20 12:12] LABS: Basophils % 0.2 % (0.0-0.8); Eosinophils # 0.1 10*3/uL (0.0-0.87); Eosinophils % 0.7 % (0.00-10.9); Immature Granulocytes % 0.2 %; Immature Granulocytes Absolute 0.02 #; Lymphocytes # 2.2 10*3/uL (1.4-4.0); Lymphocytes % 22.8 % (21.3-54.2); Mean Corpuscular HGB Conc 32.4 GM/DL (32-36); Mean Corpuscular Hemoglobin 28 PG (27-34); Mean Corpuscular Volume 86.5 FL (87-102); Mean Platelet Volume 11.2 FL (9.6-12.0); Monocytes # 0.6 10*3/uL (0.11-0.8); Monocytes % 6.2 % (1.7-12.7); Neutrophils # 6.7 10*3/uL (1.4-7.4); Neutrophils % 69.9 % (38.7-73.9); Platelet Count 237 T/CUMM (130-400); Red Blood Count 3.93 MC/CUMM (3.8-5.5); Red Cell Distribution Width 14.3 % (9.3-17.3); White Blood Count 9.6 T/CUMM (4-12)
[2017-12-20 12:37] LABS: Calcium 8.7 MG/DL (8.5-10.1); Osmolality,Calculated 294.4 MOS/KG (273-304); Potassium 3.5 MMOL/L (3.5-5.1)
[2017-12-20] MEDS ORDERED: ASPIRIN 325 MG TABLET ONE (12:49)
[2017-12-20] MEDS ORDERED: DIAZEPAM 5 MG TABLET ONE (12:49)
[2017-12-20] MEDS: SODIUM CHLORIDE 0.45% 1,000 ML IV SCH ×3 (12:51→20:40)
[2017-12-20] MEDS ORDERED: HEPARIN/NACL 0.9% 2 UNITS/ML 1,000 ML IV ONE (14:23)
[2017-12-20] MEDS ORDERED: NITROGLYCERIN DRIP 50 MG/250 ML BOTTLE IV ONE (14:37)
[2017-12-20] MEDS ORDERED: LIDOCAINE 1% 20 ML VIAL ONE (14:37)
[2017-12-20] MEDS ORDERED: VERAPAMIL 5 MG/2 ML VIAL ONE (14:38)
[2017-12-20] MEDS ORDERED: MIDAZOLAM 2 MG/2 ML VIAL ONE ×2 (14:39→14:54)
[2017-12-20] MEDS ORDERED: fentaNYL 100 MCG/2 ML VIAL ONE (14:41)
[2017-12-20] MEDS ORDERED: ENOXAPARIN 60 MG/0.6 ML SYRINGE ONE (14:49)
[2017-12-20] MEDS ORDERED: GLUCAGON 1 MG VIAL IM PRN (15:15)
[2017-12-20] MEDS ORDERED: ONDANSETRON 4 MG/2 ML VIAL IV PRN (15:15)
[2017-12-20] MEDS ORDERED: ZALEPLON 5 MG CAPSULE PO PRN (15:15)
[2017-12-20] MEDS ORDERED: DEXTROSE 50% 25 GM/50 ML VIAL IV PRN (15:15)
[2017-12-20] MEDS ORDERED: ACETAMINOPHEN 325 MG TABLET PO PRN (15:15)
[2017-12-20] MEDS ORDERED: NITROGLYCERIN SL 0.4 MG TABLET SL PRN (15:17)
[2017-12-20] MEDS ORDERED: NON-FORMULARY MEDICATION (Dulaglutide [Trulicity] 1.5 MG) SQ SCH (15:30)
[2017-12-20] MEDS ORDERED: MAGNESIUM HYDROXIDE SUSP 30 ML UDCUP PO PRN (17:50)
[2017-12-20] MEDS: INSULIN REGULAR 100 UNIT/ML SUBCUT SCH ×2 (17:56→20:37)
[2017-12-20] MEDS: CARVEDILOL 3.125 MG TABLET PO SCH (20:37)
[2017-12-20] MEDS: ATORVASTATIN 80 MG TABLET PO SCH (20:37)
[2017-12-20] MEDS ORDERED: DIAZEPAM 5 MG TABLET PO PRN (22:59)
[2017-12-21] MEDS: SODIUM CHLORIDE 0.45% 1,000 ML IV SCH ×2 (05:36→10:37)
[2017-12-21 06:14] LABS: Basophils % 0.4 % (0.0-0.8); Eosinophils # 0.1 10*3/uL (0.0-0.87); Eosinophils % 0.8 % (0.00-10.9); Hematocrit 33.1 VOL% (35.7-47.0); Hemoglobin 10.5 GM/DL (12.0-16.0); Immature Granulocytes % 0.2 %; Immature Granulocytes Absolute 0.02 #; Lymphocytes # 2.5 10*3/uL (1.4-4.0); Lymphocytes % 29.9 % (21.3-54.2); Mean Corpuscular HGB Conc 31.7 GM/DL (32-36); Mean Corpuscular Hemoglobin 28 PG (27-34); Mean Corpuscular Volume 86.9 FL (87-102); Monocytes # 0.5 10*3/uL (0.11-0.8); Monocytes % 6.2 % (1.7-12.7); Neutrophils # 5.3 10*3/uL (1.4-7.4); Neutrophils % 62.5 % (38.7-73.9); Platelet Count 224 T/CUMM (130-400); Red Blood Count 3.81 MC/CUMM (3.8-5.5); Red Cell Distribution Width 14.4 % (9.3-17.3); White Blood Count 8.5 T/CUMM (4-12)
[2017-12-21 06:46] LABS: Calcium 8.4 MG/DL (8.5-10.1); Osmolality,Calculated 286.5 MOS/KG (273-304); Potassium 3.6 MMOL/L (3.5-5.1); Risk Ratio 5.56; VLDL CHOLESTEROL 52.8 MG/DL
[2017-12-21] MEDS ORDERED: hydrALAZINE 20 MG/1 ML VIAL IV PRN (07:08)
[2017-12-21] MEDS ORDERED: ASPIRIN EC 81 MG TABLET PO SCH (09:00)
[2017-12-21] MEDS: INSULIN REGULAR 100 UNIT/ML SUBCUT SCH ×4 (10:37→21:20)
[2017-12-21] MEDS: predniSONE 5 MG TABLET PO SCH (10:38)
[2017-12-21] MEDS: CARVEDILOL 3.125 MG TABLET PO SCH ×2 (10:38→21:20)
[2017-12-21] MEDS: amLODIPine 2.5 MG TABLET PO SCH (10:38)
[2017-12-21] MEDS: ENOXAPARIN 100 MG/ML SYRINGE SUBCUT SCH (10:38)
[2017-12-21] MEDS: LOSARTAN 25 MG TABLET PO SCH (10:38)
[2017-12-21] MEDS: PREGABALIN 100 MG CAPSULE PO SCH (10:38)
[2017-12-21] MEDS: ASPIRIN EC 81 MG TABLET PO SCH (10:38)
[2017-12-21] MEDS: PANTOPRAZOLE 40 MG TABLET PO SCH (10:38)
[2017-12-21] MEDS: ISOSORBIDE MONONITRATE 30 MG TABLET PO SCH (10:38)
[2017-12-21] MEDS: SERTRALINE 100 MG TABLET PO SCH (10:39)
[2017-12-21] MEDS ORDERED: DEXTROSE 50% 25 GM/50 ML VIAL IV PRN (11:49)
[2017-12-21] MEDS ORDERED: GLUCAGON 1 MG VIAL IM PRN (11:49)
[2017-12-21] MEDS: CHLORHEXIDINE 4% SOLN 118 ML BOTTLE TOP SCH (17:39)
[2017-12-21] MEDS: SODIUM CHLORIDE 0.9% 1,000 ML IV SCH (17:39)
[2017-12-21] MEDS: ATORVASTATIN 80 MG TABLET PO SCH (21:20)
[2017-12-21] MEDS: CHLORHEXIDINE 0.12% ORAL RINSE 60 ML BOTTLE SWISH/SPIT SCH (21:25)
[2017-12-22 03:49] LABS: ABG Base Excess 0.1 MMOL/L (-2.5-2.5); ABG HCO3 24.5 MMOL/L (20-26); ABG Oxygen Saturation 95.9 % (95-100); ABG PCO2 44.3 MM HG (35-48); ABG PH 7.369 (7.35-7.45); ABG PO2 84.8 MM HG (80-95); ABG TCO2 23.5 MMOL/L (23-27); Allen Test Positive; Pt O2 Delivery Device Room Air
[2017-12-22 05:16] LABS: Basophils % 0.5 % (0.0-0.8); Eosinophils # 0.1 10*3/uL (0.0-0.87); Eosinophils % 0.8 % (0.00-10.9); Hematocrit 31.3 VOL% (35.7-47.0); Hemoglobin 10.1 GM/DL (12.0-16.0); Immature Granulocytes % 0.2 %; Immature Granulocytes Absolute 0.02 #; Lymphocytes # 1.8 10*3/uL (1.4-4.0); Lymphocytes % 21.9 % (21.3-54.2); Mean Corpuscular HGB Conc 32.3 GM/DL (32-36); Mean Corpuscular Hemoglobin 28 PG (27-34); Mean Corpuscular Volume 86.2 FL (87-102); Mean Platelet Volume 11.6 FL (9.6-12.0); Monocytes # 0.5 10*3/uL (0.11-0.8); Monocytes % 6.3 % (1.7-12.7); Neutrophils # 5.9 10*3/uL (1.4-7.4); Neutrophils % 70.3 % (38.7-73.9); Platelet Count 223 T/CUMM (130-400); Red Blood Count 3.63 MC/CUMM (3.8-5.5); Red Cell Distribution Width 14.3 % (9.3-17.3); White Blood Count 8.4 T/CUMM (4-12)
[2017-12-22 05:59] LABS: Albumin 3.1 G/DL (3.4-5.0); Bilirubin,Total 0.4 MG/DL (0.2-1.0); Calcium 8.8 MG/DL (8.5-10.1); Osmolality,Calculated 289.5 MOS/KG (273-304); Potassium 4.5 MMOL/L (3.5-5.1)
[2017-12-22] MEDS: amLODIPine 2.5 MG TABLET PO SCH ×2 (08:22→11:00)
[2017-12-22] MEDS: PREGABALIN 100 MG CAPSULE PO SCH (08:22)
[2017-12-22] MEDS: INSULIN REGULAR 100 UNIT/ML SUBCUT SCH ×4 (08:22→20:26)
[2017-12-22] MEDS: ASPIRIN EC 81 MG TABLET PO SCH (08:22)
[2017-12-22] MEDS: predniSONE 5 MG TABLET PO SCH (08:22)
[2017-12-22] MEDS: CALCIUM (CARBONATE)/VITAMIN D 600 MG-400 UNIT TABLET PO SCH (08:22)
[2017-12-22] MEDS: SERTRALINE 100 MG TABLET PO SCH (08:22)
[2017-12-22] MEDS: LOSARTAN 25 MG TABLET PO SCH ×2 (08:22→10:00)
[2017-12-22] MEDS: CARVEDILOL 3.125 MG TABLET PO SCH ×3 (08:22→20:25)
[2017-12-22] MEDS: ENOXAPARIN 100 MG/ML SYRINGE SUBCUT SCH ×2 (08:22→10:00)
[2017-12-22] MEDS: ISOSORBIDE MONONITRATE 30 MG TABLET PO SCH ×2 (08:22→10:00)
[2017-12-22] MEDS: PANTOPRAZOLE 40 MG TABLET PO SCH (08:22)
[2017-12-22] MEDS: CHLORHEXIDINE 0.12% ORAL RINSE 60 ML BOTTLE SWISH/SPIT SCH ×2 (09:04→20:29)
[2017-12-22] MEDS: CLORAZEPATE 3.75 MG TABLET PO PRN ×2 (10:00→20:25)
[2017-12-22] MEDS: SODIUM CHLORIDE 0.9% 1,000 ML IV SCH (12:06)
[2017-12-22] MEDS: CHLORHEXIDINE 4% SOLN 118 ML BOTTLE TOP SCH (17:50)
[2017-12-22] MEDS: ATORVASTATIN 80 MG TABLET PO SCH (20:25)
[2017-12-23 05:36] LABS: Basophils % 0.4 % (0.0-0.8); Eosinophils # 0.1 10*3/uL (0.0-0.87); Eosinophils % 1.5 % (0.00-10.9); Hematocrit 29.1 VOL% (35.7-47.0); Hemoglobin 9.1 GM/DL (12.0-16.0); Immature Granulocytes % 0.3 %; Immature Granulocytes Absolute 0.02 #; Lymphocytes # 2.5 10*3/uL (1.4-4.0); Lymphocytes % 36.7 % (21.3-54.2); Mean Corpuscular HGB Conc 31.3 GM/DL (32-36); Mean Corpuscular Hemoglobin 28 PG (27-34); Mean Corpuscular Volume 88.7 FL (87-102); Mean Platelet Volume 11.6 FL (9.6-12.0); Monocytes # 0.5 10*3/uL (0.11-0.8); Neutrophils # 3.6 10*3/uL (1.4-7.4); Neutrophils % 53.1 % (38.7-73.9); Platelet Count 201 T/CUMM (130-400); Red Blood Count 3.28 MC/CUMM (3.8-5.5); Red Cell Distribution Width 14.3 % (9.3-17.3); White Blood Count 6.8 T/CUMM (4-12)
[2017-12-23 06:05] LABS: Calcium 9.1 MG/DL (8.5-10.1); Osmolality,Calculated 291.8 MOS/KG (273-304); Potassium 5.2 MMOL/L (3.5-5.1)
[2017-12-23] MEDS: PANTOPRAZOLE 40 MG TABLET PO SCH (09:02)
[2017-12-23] MEDS: INSULIN REGULAR 100 UNIT/ML SUBCUT SCH ×4 (09:05→20:19)
[2017-12-23] MEDS: CARVEDILOL 3.125 MG TABLET PO SCH ×2 (09:05→20:19)
[2017-12-23] MEDS: amLODIPine 2.5 MG TABLET PO SCH (09:05)
[2017-12-23] MEDS: predniSONE 5 MG TABLET PO SCH (09:05)
[2017-12-23] MEDS: LOSARTAN 25 MG TABLET PO SCH (09:05)
[2017-12-23] MEDS: ISOSORBIDE MONONITRATE 30 MG TABLET PO SCH (09:05)
[2017-12-23] MEDS: ASPIRIN EC 81 MG TABLET PO SCH (09:05)
[2017-12-23] MEDS: CHLORHEXIDINE 0.12% ORAL RINSE 60 ML BOTTLE SWISH/SPIT SCH ×2 (09:05→20:19)
[2017-12-23] MEDS: PREGABALIN 100 MG CAPSULE PO SCH (09:05)
[2017-12-23] MEDS: CLORAZEPATE 3.75 MG TABLET PO PRN ×2 (09:05→20:19)
[2017-12-23] MEDS: SERTRALINE 100 MG TABLET PO SCH (09:05)
[2017-12-23] MEDS: ENOXAPARIN 100 MG/ML SYRINGE SUBCUT SCH (10:26)
[2017-12-23] MEDS ORDERED: CEFUROXIME INJ 1,500 MG in SYRINGE 1 EACH IV ONE (11:49)
[2017-12-23] MEDS: SODIUM CHLORIDE 0.9% 1,000 ML IV SCH (13:35)
[2017-12-23] MEDS: CHLORHEXIDINE 4% SOLN 118 ML BOTTLE TOP SCH ×2 (14:00→20:19)
[2017-12-23] MEDS: ATORVASTATIN 80 MG TABLET PO SCH (20:19)
[2017-12-24 04:48] LABS: Basophils % 0.4 % (0.0-0.8); Eosinophils # 0.1 10*3/uL (0.0-0.87); Eosinophils % 0.9 % (0.00-10.9); Hematocrit 27.8 VOL% (35.7-47.0); Hemoglobin 9.2 GM/DL (12.0-16.0); Immature Granulocytes % 0.3 %; Immature Granulocytes Absolute 0.02 #; Lymphocytes % 28.9 % (21.3-54.2); Mean Corpuscular HGB Conc 33.1 GM/DL (32-36); Mean Corpuscular Hemoglobin 28 PG (27-34); Mean Corpuscular Volume 84.5 FL (87-102); Mean Platelet Volume 11.6 FL (9.6-12.0); Monocytes # 0.5 10*3/uL (0.11-0.8); Monocytes % 6.9 % (1.7-12.7); Neutrophils # 4.3 10*3/uL (1.4-7.4); Neutrophils % 62.6 % (38.7-73.9); Platelet Count 202 T/CUMM (130-400); Red Blood Count 3.29 MC/CUMM (3.8-5.5); Red Cell Distribution Width 14.4 % (9.3-17.3); White Blood Count 6.8 T/CUMM (4-12)
[2017-12-24] MEDS: CHLORHEXIDINE 4% SOLN 118 ML BOTTLE TOP SCH (04:57)
[2017-12-24 05:03] LABS: Calcium 8.8 MG/DL (8.5-10.1); Potassium 4.1 MMOL/L (3.5-5.1)
[2017-12-24] MEDS ORDERED: VANCOMYCIN 1,000 MG VIAL ONE (05:23)
[2017-12-24] MEDS ORDERED: PAPAVERINE 60 MG/2 ML VIAL ONE (05:23)
[2017-12-24] MEDS ORDERED: FAMOTIDINE 20 MG TABLET PO ONE (05:30)
[2017-12-24] MEDS ORDERED: DIAZEPAM 5 MG TABLET PO ONE (05:30)
[2017-12-24] MEDS: CARVEDILOL 3.125 MG TABLET PO SCH ×2 (05:43→11:09)
[2017-12-24] MEDS: amLODIPine 2.5 MG TABLET PO SCH ×2 (05:43→11:09)
[2017-12-24] MEDS: ISOSORBIDE MONONITRATE 30 MG TABLET PO SCH ×2 (05:43→11:09)
[2017-12-24 07:48] LABS: ABG Base Excess 0.5 MMOL/L (-2.5-2.5); ABG HCO3 24.9 MMOL/L (20-26); ABG Oxygen Saturation 98.2 % (95-100); ABG PCO2 32.9 MM HG (35-48); ABG PH 7.467 (7.35-7.45); ABG TCO2 21.9 MMOL/L (23-27); Glucose Heart Surgery 142 MG/DL (74-106); Hematocrit Heart Surgery 27.7 PERCENT (37-47); Hemoglobin Heart Surgery 8.9 G/DL (12.0-16.0); Ionized Calcium Arterial 1.23 MMOL/L (1.21-1.46); PCO2 Patient Temp Arterial 32.9 MMHG; PH Patient Temp Arterial 7.467; Patient Temperature 37 CELCIUS; Potassium Heart/CVR 3.9 MMOL/L (3.5-5.1); Sodium Heart/CVR 142 MMOL/L (135-145)
[2017-12-24] MEDS ORDERED: PHENYLEPHRINE DRIP 40 MG/250 ML PREMIX IV ONE (08:31)
[2017-12-24] MEDS ORDERED: NITROPRUSSIDE 50 MG/2 ML VIAL ONE (08:31)
[2017-12-24] MEDS ORDERED: ALBUMIN 5% 12.5 GM/250 ML VIAL IV ONE ×2 (08:32→11:12)
[2017-12-24] MEDS ORDERED: POTASSIUM CHLORIDE RIDER 100 ML IV ONE (08:32)
[2017-12-24 08:41] LABS: Apearance,Urine CLEAR (Clear); Bilirubin,Urine Negative (Negative); Blood, Urine Negative (Negative); Glucose,Urine (UA) Negative (Negative); Ketones,Urine Negative (Negative); Mucus,Urine Occasional /LPF (Occasional); Nitrite,Urine Negative (Negative); Protein,Urine Negative; Squamous Epithelial Cell,Urine Occasional /HPF (0-10); Urine Color Yellow (Yellow); Urine Specific Gravity 1.016 (1.001-1.035); Urine Urobilinogen < 2.0 EU/DL (0.2-1.0); WBC,Urine 1 /HPF (0-6)
[2017-12-24 09:33] LABS: Hematocrit Heart Surgery 27.7 PERCENT (37-47); Hemoglobin Heart Surgery 8.9 G/DL (12.0-16.0); PH Patient Temp Venous 7.393; PO2 Patient Temp Venous 41.4 MM HG; Potassium Heart/CVR 4.4 MMOL/L (3.5-5.1); VBG Base Excess -0.4 MEQ/L (0-4); VBG HCO3 23.8 MEQ/L (24-28); VBG Oxygen Saturation 78.6 %; VBG PH 7.393; VBG PO2 41.4 MMHG (17-40)
[2017-12-24 10:08] LABS: Hematocrit Heart Surgery 25.9 PERCENT (37-47); Hemoglobin Heart Surgery 8.3 G/DL (12.0-16.0); PCO2 Patient Temp Venous 29.5 MM HG; PH Patient Temp Venous 7.504; PO2 Patient Temp Venous 30.8 MM HG; Potassium Heart/CVR 4.4 MMOL/L (3.5-5.1); VBG Base Excess 0.6 MEQ/L (0-4); VBG HCO3 24.7 MEQ/L (24-28); VBG Oxygen Saturation 76.4 %; VBG PCO2 34.1 MMHG (41-51); VBG PH 7.459
[2017-12-24 10:38] LABS: Hematocrit Heart Surgery 27.6 PERCENT (37-47); Hemoglobin Heart Surgery 8.9 G/DL (12.0-16.0); PCO2 Patient Temp Venous 32.9 MM HG; PH Patient Temp Venous 7.472; PO2 Patient Temp Venous 36.1 MM HG; Potassium Heart/CVR 5.5 MMOL/L (3.5-5.1); VBG Base Excess 0.8 MEQ/L (0-4); VBG HCO3 24.8 MEQ/L (24-28); VBG Oxygen Saturation 75.8 %; VBG PCO2 32.9 MMHG (41-51); VBG PH 7.472; VBG PO2 36.1 MMHG (17-40)
[2017-12-24] MEDS: INSULIN REGULAR 100 UNIT/ML SUBCUT SCH ×2 (11:08→19:46)
[2017-12-24] MEDS: CHLORHEXIDINE 0.12% ORAL RINSE 60 ML BOTTLE SWISH/SPIT SCH ×2 (11:09→20:20)
[2017-12-24] MEDS: CALCIUM (CARBONATE)/VITAMIN D 600 MG-400 UNIT TABLET PO SCH (11:09)
[2017-12-24] MEDS: PREGABALIN 100 MG CAPSULE PO SCH (11:09)
[2017-12-24] MEDS: ASPIRIN EC 81 MG TABLET PO SCH (11:09)
[2017-12-24] MEDS: predniSONE 5 MG TABLET PO SCH (11:10)
[2017-12-24] MEDS: SERTRALINE 100 MG TABLET PO SCH (11:10)
[2017-12-24] MEDS: PANTOPRAZOLE 40 MG TABLET PO SCH (11:10)
[2017-12-24] MEDS ORDERED: MAGNESIUM SULFATE 1 GM/2 ML VIAL ONE (11:11)
[2017-12-24] MEDS ORDERED: ALBUMIN 25% 25 GM/100 ML VIAL IV ONE (11:11)
[2017-12-24] MEDS ORDERED: PROTAMINE SULFATE 250 MG/25 ML VIAL IV ONE (11:11)
[2017-12-24] MEDS ORDERED: DEXTROSE 5% KCL 20 MEQ 20 MEQ/1,000 ML BAG IV ONE (11:11)
[2017-12-24] MEDS ORDERED: SODIUM BICARBONATE 50 MEQ/50 ML SYRINGE IV ONE (11:11)
[2017-12-24] MEDS ORDERED: methylPREDNISolone SOD SUC 1,000 MG/8 ML VIAL ONE (11:12)
[2017-12-24] MEDS ORDERED: HEPARIN 10,000 UNIT/10 ML VIAL ONE (11:12)
[2017-12-24] MEDS ORDERED: MANNITOL 12.5 GM/50 ML VIAL IV ONE (11:12)
[2017-12-24] MEDS ORDERED: FUROSEMIDE 20 MG/2 ML VIAL ONE (11:13)
[2017-12-24] MEDS ORDERED: POTASSIUM CHLORIDE 20 MEQ/10 ML VIAL ONE (11:13)
[2017-12-24 11:15] LABS: ABG Base Excess -0.4 MMOL/L (-2.5-2.5); ABG HCO3 23.2 MMOL/L (20-26); ABG Oxygen Saturation 94.8 % (95-100); ABG PCO2 33.6 MM HG (35-48); ABG PH 7.457 (7.35-7.45); ABG PO2 77.8 MM HG (80-95); ABG TCO2 24.2 MMOL/L (23-27); Glucose Heart Surgery 270 MG/DL (74-106); Hemoglobin Heart Surgery 8.4 G/DL (12.0-16.0); Ionized Calcium Arterial 1.21 MMOL/L (1.21-1.46); PCO2 Patient Temp Arterial 33.6 MMHG; PH Patient Temp Arterial 7.457; PO2 Patient Temp Arterial 77.8 MM HG; Patient Temperature 37 CELCIUS; Potassium Heart/CVR 4.6 MMOL/L (3.5-5.1); Sodium Heart/CVR 136 MMOL/L (135-145)
[2017-12-24 11:24] LABS: ABG Base Excess -1.7 MMOL/L (-2.5-2.5); ABG Oxygen Saturation 99.7 % (95-100); ABG PCO2 35.8 MM HG (35-48); ABG PH 7.408 (7.35-7.45); Glucose Heart Surgery 264 MG/DL (74-106); Hematocrit Heart Surgery 26.3 PERCENT (37-47); Hemoglobin Heart Surgery 8.5 G/DL (12.0-16.0); Ionized Calcium Arterial 1.15 MMOL/L (1.21-1.46); PCO2 Patient Temp Arterial 35.8 MMHG; PH Patient Temp Arterial 7.408; Patient Temperature 37 CELCIUS; Potassium Heart/CVR 4.2 MMOL/L (3.5-5.1); Sodium Heart/CVR 137 MMOL/L (135-145)
[2017-12-24] MEDS ORDERED: EPINEPHrine 1 MG/ML VIAL ONE ×2 (12:03→13:15)
[2017-12-24] MEDS ORDERED: NITROGLYCERIN DRIP 50 MG/250 ML BOTTLE IV ONE ×2 (12:42→13:16)
[2017-12-24] MEDS ORDERED: POTASSIUM CHLORIDE RIDER 10 MEQ in PREMIX 1 EACH IV PRN (13:05)
[2017-12-24] MEDS ORDERED: MIDAZOLAM 10 MG/2 ML VIAL IV PRN (13:05)
[2017-12-24] MEDS ORDERED: ALBUMIN 5% 12.5 GM in PREMIX 1 EACH IV PRN (13:05)
[2017-12-24] MEDS ORDERED: CALCIUM CHLORIDE 1,000 MG/10 ML SYRINGE IV PRN (13:05)
[2017-12-24] MEDS ORDERED: LACTATED RINGERS 250 ML IV PRN (13:05)
[2017-12-24] MEDS ORDERED: MORPHINE 4 MG/1 ML VIAL IV PRN (13:05)
[2017-12-24] MEDS ORDERED: ACETAMINOPHEN 650 MG SUPP RECTAL PRN (13:05)
[2017-12-24] MEDS ORDERED: DEXTROSE 50% 25 GM/50 ML VIAL IV PRN ×2 (13:05)
[2017-12-24] MEDS ORDERED: INSULIN REGULAR 100 UNIT/ML IV ONE (13:05)
[2017-12-24] MEDS ORDERED: VECURONIUM 10 MG VIAL IV PRN ×2 (13:05)
[2017-12-24] MEDS ORDERED: MIDAZOLAM 2 MG/2 ML VIAL IV PRN (13:05)
[2017-12-24] MEDS ORDERED: MAGNESIUM SULF RIDER 4 GM in PREMIX 1 EACH IV PRN (13:05)
[2017-12-24] MEDS ORDERED: PHENYLEPHRINE DRIP 40 MG/250 ML PREMIX IV PRN (13:05)
[2017-12-24] MEDS ORDERED: MAGNESIUM SULF RIDER 2 GM in PREMIX 1 EACH IV PRN (13:05)
[2017-12-24] MEDS ORDERED: MORPHINE 10 MG/1 ML VIAL IV PRN (13:05)
[2017-12-24] MEDS ORDERED: ONDANSETRON 4 MG/2 ML VIAL IV PRN (13:05)
[2017-12-24] MEDS ORDERED: NITROPRUSSIDE 100 MG in DEXTROSE 5% 250 ML IV PRN (13:05)
[2017-12-24] MEDS ORDERED: MIDAZOLAM 2 MG/2 ML VIAL ONE (13:07)
[2017-12-24] MEDS ORDERED: NITROGLYCERIN DRIP 50 MG/250 ML BOTTLE IV PRN (13:08)
[2017-12-24] MEDS ORDERED: CALCIUM CHLORIDE 1,000 MG/10 ML VIAL IV ONE (13:14)
[2017-12-24] MEDS ORDERED: SEVOFLURANE 1 UNIT/15 MINUTE INH ONE (13:14)
[2017-12-24] MEDS ORDERED: MIDAZOLAM 10 MG/2 ML VIAL ONE ×2 (13:14→13:15)
[2017-12-24] MEDS ORDERED: SUFentanil 250 MCG/5 ML AMP ONE (13:14)
[2017-12-24 13:16] LABS: ABG Base Excess -2.5 MMOL/L (-2.5-2.5); ABG HCO3 22.3 MMOL/L (20-26); ABG PCO2 39.3 MM HG (35-48); ABG PH 7.366 (7.35-7.45); ABG TCO2 20.7 MMOL/L (23-27); Glucose Heart Surgery 314 MG/DL (74-106); Hematocrit Heart Surgery 29.4 PERCENT (37-47); Hemoglobin Heart Surgery 9.5 G/DL (12.0-16.0); Potassium Heart/CVR 4.2 MMOL/L (3.5-5.1)
[2017-12-24] MEDS ORDERED: TRANEXAMIC ACID 1,000 MG/10 ML VIAL ONE (13:16)
[2017-12-24] MEDS ORDERED: SODIUM CHLORIDE 0.9% 250 ML IV ONE (13:16)
[2017-12-24] MEDS ORDERED: SODIUM CHLORIDE 0.9% 100 ML IV ONE (13:16)
[2017-12-24] MEDS ORDERED: VECURONIUM 10 MG VIAL IV ONE (13:16)
[2017-12-24] MEDS ORDERED: PHENYLEPHRINE 10 MG/1 ML VIAL IV ONE (13:16)
[2017-12-24] MEDS ORDERED: ePHEDrine 50 MG/ML AMP ONE (13:16)
[2017-12-24] MEDS ORDERED: LACTATED RINGERS 1,000 ML IV ONE (13:16)
[2017-12-24] MEDS ORDERED: SODIUM CHLORIDE 0.9% 1,000 ML IV ONE (13:16)
[2017-12-24] MEDS: SODIUM CHLORIDE 0.45% 1,000 ML IV SCH ×2 (13:17→14:03)
[2017-12-24] MEDS ORDERED: HEPARIN/NACL 0.9% 2 UNITS/ML 500 ML IV ONE (13:20)
[2017-12-24 13:23] LABS: Basophils % 0.3 % (0.0-0.8); Eosinophils % 0.1 % (0.00-10.9); Hematocrit 28.7 VOL% (35.7-47.0); Hemoglobin 9.6 GM/DL (12.0-16.0); Immature Granulocytes Absolute 0.15 #; Lymphocytes % 6.8 % (21.3-54.2); Mean Corpuscular HGB Conc 33.4 GM/DL (32-36); Mean Corpuscular Hemoglobin 29 PG (27-34); Mean Corpuscular Volume 85.2 FL (87-102); Mean Platelet Volume 11.4 FL (9.6-12.0); Monocytes # 0.6 10*3/uL (0.11-0.8); Monocytes % 3.8 % (1.7-12.7); NRBC # 0.02 10*3/uL; Neutrophils # 12.9 10*3/uL (1.4-7.4); Platelet Count 159 T/CUMM (130-400); Red Blood Count 3.37 MC/CUMM (3.8-5.5); White Blood Count 14.6 T/CUMM (4-12)
[2017-12-24 13:29] LABS: INR 1.1; PT Patient Result 11.4 SECS; Partial Thromboplastin Time 26.4 SECS (0-40)
[2017-12-24 13:35] LABS: CKMB % 5.8 %
[2017-12-24 13:39] LABS: Albumin 2.9 G/DL (3.4-5.0); Bilirubin,Total 0.8 MG/DL (0.2-1.0); Calcium 8.3 MG/DL (8.5-10.1); Osmolality,Calculated 292.5 MOS/KG (273-304); Potassium 4.4 MMOL/L (3.5-5.1); Total Protein 4.9 G/DL (6.4-8.3)
[2017-12-24 13:40] LABS: Troponin I Only 4.3 NG/ML (0.00-0.045)
[2017-12-24] MEDS: INSULIN REGULAR DRIP 100 ML IV SCH ×2 (14:15→22:30)
[2017-12-24] MEDS: KETOROLAC 30 MG/1 ML VIAL IV SCH ×2 (14:20→18:47)
[2017-12-24] MEDS: POTASSIUM CHLORIDE RIDER 20 MEQ in PREMIX 1 EACH IV PRN ×3 (14:25→21:45)
[2017-12-24] MEDS: LACTATED RINGERS 1,000 ML IV PRN (15:00)
[2017-12-24 16:15] LABS: ABG Base Excess -2.7 MMOL/L (-2.5-2.5); ABG HCO3 22.2 MMOL/L (20-26); ABG Oxygen Saturation 99.2 % (95-100); ABG PCO2 42.3 MM HG (35-48); ABG PH 7.342 (7.35-7.45); ABG TCO2 21.1 MMOL/L (23-27); Glucose Heart Surgery 297 MG/DL (74-106); Hematocrit Heart Surgery 29.9 PERCENT (37-47); Hemoglobin Heart Surgery 9.6 G/DL (12.0-16.0); Potassium Heart/CVR 4.4 MMOL/L (3.5-5.1)
[2017-12-24] MEDS: INSULIN REGULAR 100 UNIT/ML IV PRN ×2 (16:39→20:03)
[2017-12-24] MEDS ORDERED: oxyCODONE/ACETAMINOPHEN 5-325 MG TABLET PER TUBE PRN (16:41)
[2017-12-24] MEDS: SODIUM CHLORIDE 0.9% 1,000 ML IV SCH (19:47)
[2017-12-24] MEDS: CEFUROXIME INJ 1,500 MG in SYRINGE 1 EACH IV SCH (20:19)
[2017-12-24 21:34] LABS: ABG Base Excess -3.6 MMOL/L (-2.5-2.5); ABG HCO3 21.4 MMOL/L (20-26); ABG Oxygen Saturation 98.5 % (95-100); ABG PCO2 44.8 MM HG (35-48); ABG TCO2 20.9 MMOL/L (23-27); Glucose Heart Surgery 122 MG/DL (74-106); Hematocrit Heart Surgery 28.5 PERCENT (37-47); Hemoglobin Heart Surgery 9.2 G/DL (12.0-16.0); Potassium Heart/CVR 4.3 MMOL/L (3.5-5.1)
[2017-12-24 22:01] LABS: CKMB % 8.2 %
[2017-12-24 22:04] LABS: Troponin I Only 21.6 NG/ML (0.00-0.045)
[2017-12-24] MEDS ORDERED: FUROSEMIDE 40 MG/4 ML VIAL IV ONE (22:30)
[2017-12-25] MEDS: KETOROLAC 30 MG/1 ML VIAL IV SCH ×2 (01:20→07:40)
[2017-12-25 01:46] LABS: ABG Base Excess -2.6 MMOL/L (-2.5-2.5); ABG HCO3 22.8 MMOL/L (20-26); ABG PCO2 41.9 MM HG (35-48); ABG PH 7.354 (7.35-7.45); ABG PO2 141.9 MM HG (80-95); ABG TCO2 24.1 MMOL/L (23-27); Glucose Heart Surgery 139 MG/DL (74-106); Hemoglobin Heart Surgery 9.2 G/DL (12.0-16.0); Potassium Heart/CVR 4.6 MMOL/L (3.5-5.1)
[2017-12-25 03:29] LABS: ABG Base Excess -2.4 MMOL/L (-2.5-2.5); ABG HCO3 22.5 MMOL/L (20-26); ABG Oxygen Saturation 97.7 % (95-100); ABG PCO2 38.9 MM HG (35-48); ABG PO2 120.5 MM HG (80-95); ABG TCO2 23.7 MMOL/L (23-27); Glucose Heart Surgery 112 MG/DL (74-106); Hemoglobin Heart Surgery 9.2 G/DL (12.0-16.0); Potassium Heart/CVR 4.2 MMOL/L (3.5-5.1)
[2017-12-25 03:39] LABS: Basophils % 0.1 % (0.0-0.8); Hematocrit 26.7 VOL% (35.7-47.0); Hemoglobin 8.9 GM/DL (12.0-16.0); Immature Granulocytes % 0.6 %; Immature Granulocytes Absolute 0.14 #; Lymphocytes % 4.1 % (21.3-54.2); Mean Corpuscular HGB Conc 33.3 GM/DL (32-36); Mean Corpuscular Hemoglobin 29 PG (27-34); Mean Corpuscular Volume 87.3 FL (87-102); Mean Platelet Volume 11.5 FL (9.6-12.0); Monocytes % 4.2 % (1.7-12.7); Neutrophils # 21.7 10*3/uL (1.4-7.4); Platelet Count 247 T/CUMM (130-400); Red Blood Count 3.06 MC/CUMM (3.8-5.5); Red Cell Distribution Width 15.8 % (9.3-17.3); White Blood Count 23.9 T/CUMM (4-12)
[2017-12-25 03:58] LABS: Band Neutrophils 28 % (0-10); Lymphocytes 2 % (20-55); Segmented Neutrophils 68 % (50-85); Total Cells Counted 100
[2017-12-25 04:10] LABS: Alanine Aminotransferase 45 U/L (13-56); Albumin 3.1 G/DL (3.4-5.0); Alkaline Phosphatase 73 U/L (45-117); Aspartate Amino Transferase 247 U/L (0-37); Bilirubin,Direct < 0.100 MG/DL (0.0-0.20); Bilirubin,Total < 0.39 MG/DL (0.2-1.0); Blood Urea Nitrogen 28 MG/DL (7-18); Calcium 8.2 MG/DL (8.5-10.1); Glucose 113 MG/DL (74-106); Osmolality,Calculated 289.1 MOS/KG (273-304); Potassium 4.1 MMOL/L (3.5-5.1); Sodium 142 MMOL/L (136-145)
[2017-12-25 04:23] LABS: CKMB % 11.1 %
[2017-12-25 04:26] LABS: Troponin I Only 54.4 NG/ML (0.00-0.045)
[2017-12-25] MEDS ORDERED: IBUPROFEN 800 MG TABLET PO ONE (05:30)
[2017-12-25] MEDS ORDERED: IBUPROFEN 400 MG TABLET PO ONE (05:30)
[2017-12-25] MEDS ORDERED: HYDROmorphone 2 MG TABLET PO ONE (05:30)
[2017-12-25] MEDS: LACTATED RINGERS 1,000 ML IV PRN (06:21)
[2017-12-25] MEDS ORDERED: GLUCAGON 1 MG VIAL IM PRN ×2 (07:30→08:55)
[2017-12-25] MEDS ORDERED: DEXTROSE 50% 25 GM/50 ML VIAL IV PRN ×2 (07:30→08:55)
[2017-12-25] MEDS ORDERED: INSULIN REGULAR 100 UNIT/ML SUBCUT SCH (07:30)
[2017-12-25] MEDS: CEFUROXIME INJ 1,500 MG in SYRINGE 1 EACH IV SCH ×2 (08:16→20:23)
[2017-12-25] MEDS ORDERED: CLORAZEPATE 3.75 MG TABLET PO PRN (08:58)
[2017-12-25] MEDS ORDERED: ZALEPLON 5 MG CAPSULE PO PRN (08:58)
[2017-12-25] MEDS: HYDROmorphone 2 MG TABLET PO PRN ×3 (09:40→20:22)
[2017-12-25] MEDS: CHLORHEXIDINE 0.12% ORAL RINSE 60 ML BOTTLE SWISH/SPIT SCH ×2 (09:48→21:22)
[2017-12-25] MEDS: ASPIRIN EC 81 MG TABLET PO SCH (09:48)
[2017-12-25] MEDS: SERTRALINE 100 MG TABLET PO SCH (10:06)
[2017-12-25] MEDS: PREGABALIN 100 MG CAPSULE PO SCH (10:06)
[2017-12-25] MEDS: predniSONE 5 MG TABLET PO SCH (10:07)
[2017-12-25] MEDS: CARVEDILOL 6.25 MG TABLET PO SCH ×2 (12:13→21:22)
[2017-12-25] MEDS: INSULIN REGULAR 100 UNIT/ML SUBCUT SCH ×3 (12:16→20:23)
[2017-12-25 16:23] LABS: CKMB % 10.2 %
[2017-12-25 16:40] LABS: Troponin I Only 67.4 NG/ML (0.00-0.045)
[2017-12-25 18:50] LABS: Hematocrit 28.3 VOL% (35.7-47.0); Hemoglobin 9.3 GM/DL (12.0-16.0)
[2017-12-25] MEDS: ATORVASTATIN 80 MG TABLET PO SCH (20:23)
[2017-12-26] MEDS: INSULIN REGULAR 100 UNIT/ML SUBCUT SCH ×6 (01:07→20:45)
[2017-12-26] MEDS: HYDROmorphone 2 MG TABLET PO PRN ×3 (02:35→09:37)
[2017-12-26 03:59] LABS: Basophils % 0.1 % (0.0-0.8); Hematocrit 32.2 VOL% (35.7-47.0); Hemoglobin 10.2 GM/DL (12.0-16.0); Immature Granulocytes % 0.4 %; Immature Granulocytes Absolute 0.08 #; Lymphocytes # 1.2 10*3/uL (1.4-4.0); Lymphocytes % 6.4 % (21.3-54.2); Mean Corpuscular HGB Conc 31.7 GM/DL (32-36); Mean Corpuscular Hemoglobin 28 PG (27-34); Mean Corpuscular Volume 88.7 FL (87-102); Mean Platelet Volume 11.4 FL (9.6-12.0); Monocytes # 1.3 10*3/uL (0.11-0.8); Monocytes % 6.7 % (1.7-12.7); Neutrophils # 16.6 10*3/uL (1.4-7.4); Neutrophils % 86.4 % (38.7-73.9); Platelet Count 143 T/CUMM (130-400); Red Blood Count 3.63 MC/CUMM (3.8-5.5); Red Cell Distribution Width 15.8 % (9.3-17.3); White Blood Count 19.2 T/CUMM (4-12)
[2017-12-26 04:17] LABS: Alanine Aminotransferase 59 U/L (13-56); Albumin 2.9 G/DL (3.4-5.0); Alkaline Phosphatase 76 U/L (45-117); Aspartate Amino Transferase 221 U/L (0-37); Bilirubin,Total < 0.39 MG/DL (0.2-1.0); Blood Urea Nitrogen 36 MG/DL (7-18); Calcium 8.2 MG/DL (8.5-10.1); Glucose 181 MG/DL (74-106); Osmolality,Calculated 293.3 MOS/KG (273-304); Potassium 4.2 MMOL/L (3.5-5.1); Sodium 141 MMOL/L (136-145); Total Protein 5.9 G/DL (6.4-8.3)
[2017-12-26 04:30] LABS: CKMB % 7.9 %
[2017-12-26 04:36] LABS: Troponin I Only 61.1 NG/ML (0.00-0.045)
[2017-12-26] MEDS: SODIUM CHLORIDE 0.45% 1,000 ML IV SCH ×2 (05:03)
[2017-12-26] MEDS: PREGABALIN 100 MG CAPSULE PO SCH (09:38)
[2017-12-26] MEDS: ASPIRIN EC 81 MG TABLET PO SCH (09:39)
[2017-12-26] MEDS: SERTRALINE 100 MG TABLET PO SCH (09:39)
[2017-12-26] MEDS: CARVEDILOL 6.25 MG TABLET PO SCH ×2 (09:39→20:45)
[2017-12-26] MEDS: predniSONE 5 MG TABLET PO SCH (09:39)
[2017-12-26] MEDS: CHLORHEXIDINE 0.12% ORAL RINSE 60 ML BOTTLE SWISH/SPIT SCH ×2 (09:40→20:46)
[2017-12-26] MEDS ORDERED: GLUCAGON 1 MG VIAL IM PRN ×2 (10:33)
[2017-12-26] MEDS ORDERED: ONDANSETRON 4 MG/2 ML VIAL IV PRN (10:33)
[2017-12-26] MEDS ORDERED: MAGNESIUM HYDROXIDE SUSP 30 ML UDCUP PO PRN (10:33)
[2017-12-26] MEDS ORDERED: ACETAMINOPHEN 325 MG TABLET PO PRN (10:33)
[2017-12-26] MEDS ORDERED: ZALEPLON 5 MG CAPSULE PO PRN (10:33)
[2017-12-26] MEDS ORDERED: SODIUM CHLOR 0.45% KCL 20 MEQ 20 MEQ/1,000 ML BAG IV SCH (10:33)
[2017-12-26] MEDS ORDERED: ALUMINUM/MAGNES/SIMETH MAX STR 30 ML UDCUP PO PRN (10:33)
[2017-12-26] MEDS ORDERED: DEXTROSE 50% 25 GM/50 ML VIAL IV PRN ×2 (10:33)
[2017-12-26] MEDS ORDERED: MAGNESIUM SULF RIDER 4 GM in PREMIX 1 EACH IV PRN (10:33)
[2017-12-26] MEDS ORDERED: MAGNESIUM SULF RIDER 2 GM in PREMIX 1 EACH IV PRN (10:33)
[2017-12-26] MEDS: IBUPROFEN 800 MG TABLET PO PRN (17:44)
[2017-12-26] MEDS: ATORVASTATIN 80 MG TABLET PO SCH (20:46)
[2017-12-27] MEDS: IBUPROFEN 800 MG TABLET PO PRN (02:19)
[2017-12-27 04:33] LABS: Basophils % 0.1 % (0.0-0.8); Eosinophils % 0.2 % (0.00-10.9); Hemoglobin 9.7 GM/DL (12.0-16.0); Immature Granulocytes % 0.5 %; Immature Granulocytes Absolute 0.07 #; Lymphocytes # 2.1 10*3/uL (1.4-4.0); Lymphocytes % 14.4 % (21.3-54.2); Mean Corpuscular HGB Conc 31.3 GM/DL (32-36); Mean Corpuscular Hemoglobin 28 PG (27-34); Mean Corpuscular Volume 90.6 FL (87-102); Mean Platelet Volume 12.6 FL (9.6-12.0); Monocytes # 1.2 10*3/uL (0.11-0.8); Monocytes % 8.4 % (1.7-12.7); Neutrophils # 11.3 10*3/uL (1.4-7.4); Neutrophils % 76.4 % (38.7-73.9); Platelet Count 151 T/CUMM (130-400); Red Blood Count 3.42 MC/CUMM (3.8-5.5); Red Cell Distribution Width 15.5 % (9.3-17.3); White Blood Count 14.8 T/CUMM (4-12)
[2017-12-27 05:02] LABS: Bilirubin,Direct 0.11 MG/DL (0.0-0.20); Bilirubin,Indirect 0.4 MG/DL (0.0-1.0); Bilirubin,Total 0.5 MG/DL (0.2-1.0)
[2017-12-27 05:19] LABS: Albumin 2.5 G/DL (3.4-5.0); CKMB % 3.6 %; Calcium 8.5 MG/DL (8.5-10.1); Osmolality,Calculated 289.5 MOS/KG (273-304); Potassium 3.7 MMOL/L (3.5-5.1); Total Protein 6.2 G/DL (6.4-8.3)
[2017-12-27 05:23] LABS: Troponin I Only 44.3 NG/ML (0.00-0.045)
[2017-12-27] MEDS ORDERED: FUROSEMIDE 40 MG/4 ML VIAL IV ONE ×2 (06:00→21:30)
[2017-12-27] MEDS: HYDROmorphone 2 MG TABLET PO PRN (08:11)
[2017-12-27] MEDS: DOCUSATE SODIUM 100 MG CAPSULE PO SCH (08:12)
[2017-12-27] MEDS: PREGABALIN 100 MG CAPSULE PO SCH (08:12)
[2017-12-27] MEDS: ASPIRIN EC 81 MG TABLET PO SCH (08:12)
[2017-12-27] MEDS: PANTOPRAZOLE 40 MG TABLET PO SCH (08:13)
[2017-12-27] MEDS: SERTRALINE 100 MG TABLET PO SCH (08:13)
[2017-12-27] MEDS: CARVEDILOL 6.25 MG TABLET PO SCH (08:14)
[2017-12-27] MEDS: predniSONE 5 MG TABLET PO SCH (08:14)
[2017-12-27] MEDS: INSULIN REGULAR 100 UNIT/ML SUBCUT SCH ×4 (09:36→21:18)
[2017-12-27] MEDS: CHLORHEXIDINE 0.12% ORAL RINSE 60 ML BOTTLE SWISH/SPIT SCH ×2 (09:37→21:18)
[2017-12-27] MEDS: FERROUS SULFATE 325 MG TABLET PO SCH (09:37)
[2017-12-27] MEDS ORDERED: EPINEPHrine 1 MG/ML VIAL ONE (15:13)
[2017-12-27] MEDS ORDERED: SODIUM CHLORIDE 0.45% 500 ML IV SCH (16:00)
[2017-12-27 16:28] LABS: Basophils % 0.1 % (0.0-0.8); Eosinophils # 0.1 10*3/uL (0.0-0.87); Eosinophils % 0.7 % (0.00-10.9); Hematocrit 31.4 VOL% (35.7-47.0); Hemoglobin 9.8 GM/DL (12.0-16.0); Immature Granulocytes % 0.4 %; Immature Granulocytes Absolute 0.06 #; Lymphocytes # 1.9 10*3/uL (1.4-4.0); Mean Corpuscular HGB Conc 31.2 GM/DL (32-36); Mean Corpuscular Hemoglobin 28 PG (27-34); Mean Corpuscular Volume 90.8 FL (87-102); Mean Platelet Volume 12.8 FL (9.6-12.0); Monocytes # 1.3 10*3/uL (0.11-0.8); Monocytes % 8.3 % (1.7-12.7); Neutrophils # 12.3 10*3/uL (1.4-7.4); Neutrophils % 78.5 % (38.7-73.9); Platelet Count 174 T/CUMM (130-400); Red Blood Count 3.46 MC/CUMM (3.8-5.5); Red Cell Distribution Width 15.4 % (9.3-17.3); White Blood Count 15.7 T/CUMM (4-12)
[2017-12-27 16:57] LABS: Calcium 8.3 MG/DL (8.5-10.1); Osmolality,Calculated 293.5 MOS/KG (273-304); Potassium 3.7 MMOL/L (3.5-5.1)
[2017-12-27 17:13] LABS: Troponin I Only 37.9 NG/ML (0.00-0.045)
[2017-12-27] MEDS: methylPREDNISolone SOD SUC 125 MG/2 ML VIAL IV SCH (17:28)
[2017-12-27] MEDS: ATORVASTATIN 80 MG TABLET PO SCH (21:21)
[2017-12-28] MEDS: HYDROmorphone 2 MG TABLET PO PRN ×3 (03:44→19:59)
[2017-12-28] MEDS: methylPREDNISolone SOD SUC 125 MG/2 ML VIAL IV SCH ×2 (03:54→16:42)
[2017-12-28 04:05] LABS: Basophils % 0.1 % (0.0-0.8); Hematocrit 30.3 VOL% (35.7-47.0); Hemoglobin 10.1 GM/DL (12.0-16.0); Immature Granulocytes % 0.5 %; Immature Granulocytes Absolute 0.08 #; Lymphocytes # 0.8 10*3/uL (1.4-4.0); Lymphocytes % 5.1 % (21.3-54.2); Mean Corpuscular HGB Conc 33.3 GM/DL (32-36); Mean Corpuscular Hemoglobin 29 PG (27-34); Mean Corpuscular Volume 86.6 FL (87-102); Mean Platelet Volume 12.9 FL (9.6-12.0); Monocytes # 0.5 10*3/uL (0.11-0.8); Monocytes % 2.9 % (1.7-12.7); Neutrophils # 14.9 10*3/uL (1.4-7.4); Neutrophils % 91.4 % (38.7-73.9); Platelet Count 220 T/CUMM (130-400); Red Cell Distribution Width 15.2 % (9.3-17.3); White Blood Count 16.3 T/CUMM (4-12)
[2017-12-28 04:29] LABS: Bilirubin,Direct < 0.100 MG/DL (0.0-0.20); Bilirubin,Indirect 0.5 MG/DL (0.0-1.0)
[2017-12-28 04:32] LABS: Alanine Aminotransferase 57 U/L (13-56); Albumin 2.9 G/DL (3.4-5.0); Alkaline Phosphatase 106 U/L (45-117); Aspartate Amino Transferase 97 U/L (0-37); Blood Urea Nitrogen 45 MG/DL (7-18); CKMB % 2.2 %; Calcium 8.1 MG/DL (8.5-10.1); Glucose 269 MG/DL (74-106); Osmolality,Calculated 297.5 MOS/KG (273-304); Potassium 3.8 MMOL/L (3.5-5.1); Sodium 139 MMOL/L (136-145); Total Protein 5.9 G/DL (6.4-8.3)
[2017-12-28 06:39] LABS: Lymphocytes 5 % (20-55); Platelet Estimate Normal; Segmented Neutrophils 93 % (50-85); Total Cells Counted 100
[2017-12-28] MEDS: SERTRALINE 100 MG TABLET PO SCH (08:30)
[2017-12-28] MEDS: ASPIRIN EC 81 MG TABLET PO SCH (08:30)
[2017-12-28] MEDS: FERROUS SULFATE 325 MG TABLET PO SCH (08:31)
[2017-12-28] MEDS: PANTOPRAZOLE 40 MG TABLET PO SCH (08:31)
[2017-12-28] MEDS: INSULIN REGULAR 100 UNIT/ML SUBCUT SCH ×4 (08:33→21:20)
[2017-12-28] MEDS: PREGABALIN 100 MG CAPSULE PO SCH (08:39)
[2017-12-28] MEDS: CHLORHEXIDINE 0.12% ORAL RINSE 60 ML BOTTLE SWISH/SPIT SCH ×2 (08:54→21:23)
[2017-12-28] MEDS: DOCUSATE SODIUM 100 MG CAPSULE PO SCH (09:18)
[2017-12-28] MEDS: predniSONE 5 MG TABLET PO SCH (09:33)
[2017-12-28] MEDS: IBUPROFEN 800 MG TABLET PO PRN (09:37)
[2017-12-28] MEDS: ATORVASTATIN 80 MG TABLET PO SCH (21:21)
[2017-12-29] MEDS: HYDROmorphone 2 MG TABLET PO PRN ×4 (02:34→21:42)
[2017-12-29] MEDS: methylPREDNISolone SOD SUC 125 MG/2 ML VIAL IV SCH (04:50)
[2017-12-29] MEDS: IBUPROFEN 800 MG TABLET PO PRN (05:18)
[2017-12-29 05:58] LABS: Basophils % 0.1 % (0.0-0.8); Hematocrit 29.9 VOL% (35.7-47.0); Hemoglobin 9.8 GM/DL (12.0-16.0); Immature Granulocytes % 0.5 %; Immature Granulocytes Absolute 0.09 #; Lymphocytes # 1.1 10*3/uL (1.4-4.0); Lymphocytes % 6.8 % (21.3-54.2); Mean Corpuscular HGB Conc 32.8 GM/DL (32-36); Mean Corpuscular Hemoglobin 29 PG (27-34); Mean Corpuscular Volume 87.4 FL (87-102); Monocytes # 1.2 10*3/uL (0.11-0.8); Monocytes % 6.9 % (1.7-12.7); Neutrophils # 14.3 10*3/uL (1.4-7.4); Neutrophils % 85.7 % (38.7-73.9); Platelet Count 237 T/CUMM (130-400); Red Blood Count 3.42 MC/CUMM (3.8-5.5); White Blood Count 16.6 T/CUMM (4-12)
[2017-12-29 06:22] LABS: Calcium 8.2 MG/DL (8.5-10.1); Osmolality,Calculated 299.3 MOS/KG (273-304)
[2017-12-29] MEDS: predniSONE 5 MG TABLET PO SCH (08:23)
[2017-12-29] MEDS: FERROUS SULFATE 325 MG TABLET PO SCH (08:23)
[2017-12-29] MEDS: SERTRALINE 100 MG TABLET PO SCH (08:23)
[2017-12-29] MEDS: ASPIRIN EC 81 MG TABLET PO SCH (08:23)
[2017-12-29] MEDS: PANTOPRAZOLE 40 MG TABLET PO SCH (08:23)
[2017-12-29] MEDS: PREGABALIN 100 MG CAPSULE PO SCH (08:23)
[2017-12-29] MEDS: DOCUSATE SODIUM 100 MG CAPSULE PO SCH (08:23)
[2017-12-29] MEDS: CHLORHEXIDINE 0.12% ORAL RINSE 60 ML BOTTLE SWISH/SPIT SCH ×2 (08:24→21:21)
[2017-12-29] MEDS: INSULIN REGULAR 100 UNIT/ML SUBCUT SCH ×4 (08:58→21:20)
[2017-12-29] MEDS: INSULIN GLARGINE 100 UNIT/ML SUBCUT SCH (09:33)
[2017-12-29] MEDS: methylPREDNISolone SOD SUC 40 MG/1 ML VIAL IV SCH (16:15)
[2017-12-29] MEDS: FUROSEMIDE 40 MG TABLET PO SCH (16:26)
[2017-12-29] MEDS: ATORVASTATIN 80 MG TABLET PO SCH (21:20)
[2017-12-30] MEDS: HYDROmorphone 2 MG TABLET PO PRN ×3 (04:43→19:04)
[2017-12-30] MEDS: methylPREDNISolone SOD SUC 40 MG/1 ML VIAL IV SCH (04:49)
[2017-12-30 05:12] LABS: Basophils % 0.1 % (0.0-0.8); Eosinophils % 0.1 % (0.00-10.9); Hematocrit 29.9 VOL% (35.7-47.0); Hemoglobin 9.7 GM/DL (12.0-16.0); Immature Granulocytes % 0.6 %; Immature Granulocytes Absolute 0.08 #; Lymphocytes # 2.1 10*3/uL (1.4-4.0); Lymphocytes % 14.7 % (21.3-54.2); Mean Corpuscular HGB Conc 32.4 GM/DL (32-36); Mean Corpuscular Hemoglobin 28 PG (27-34); Mean Corpuscular Volume 87.2 FL (87-102); Mean Platelet Volume 12.8 FL (9.6-12.0); Monocytes # 1.1 10*3/uL (0.11-0.8); Neutrophils # 10.9 10*3/uL (1.4-7.4); Neutrophils % 76.5 % (38.7-73.9); Platelet Count 234 T/CUMM (130-400); Red Blood Count 3.43 MC/CUMM (3.8-5.5); Red Cell Distribution Width 14.8 % (9.3-17.3); White Blood Count 14.2 T/CUMM (4-12)
[2017-12-30] MEDS ORDERED: AMIODARONE INJ 450 MG in DEXTROSE 5% 241 ML IV SCH ×2 (05:30→13:00)
[2017-12-30] MEDS ORDERED: AMIODARONE INJ 50 MG in DEXTROSE 5% 100 ML IV ONE (05:30)
[2017-12-30 05:37] LABS: Albumin 2.7 G/DL (3.4-5.0); CKMB % 1.8 %; Calcium 8.4 MG/DL (8.5-10.1); Osmolality,Calculated 296.1 MOS/KG (273-304); Potassium 3.7 MMOL/L (3.5-5.1); Total Protein 6.3 G/DL (6.4-8.3)
[2017-12-30 05:41] LABS: Bilirubin,Direct 0.1 MG/DL (0.0-0.20); Bilirubin,Indirect 0.4 MG/DL (0.0-1.0); Bilirubin,Total 0.5 MG/DL (0.2-1.0)
[2017-12-30 05:42] LABS: Troponin I Only 25.5 NG/ML (0.00-0.045)
[2017-12-30] MEDS: INSULIN REGULAR 100 UNIT/ML SUBCUT SCH ×4 (09:09→21:39)
[2017-12-30] MEDS: INSULIN GLARGINE 100 UNIT/ML SUBCUT SCH ×2 (09:09→21:40)
[2017-12-30] MEDS: PREGABALIN 100 MG CAPSULE PO SCH (09:10)
[2017-12-30] MEDS: FERROUS SULFATE 325 MG TABLET PO SCH (09:10)
[2017-12-30] MEDS: ASPIRIN EC 81 MG TABLET PO SCH (09:10)
[2017-12-30] MEDS: PANTOPRAZOLE 40 MG TABLET PO SCH (09:10)
[2017-12-30] MEDS: FUROSEMIDE 40 MG TABLET PO SCH (09:10)
[2017-12-30] MEDS: SERTRALINE 100 MG TABLET PO SCH (09:11)
[2017-12-30] MEDS: CHLORHEXIDINE 0.12% ORAL RINSE 60 ML BOTTLE SWISH/SPIT SCH ×2 (09:11→22:06)
[2017-12-30] MEDS: predniSONE 10 MG TABLET PO SCH ×2 (09:11→21:39)
[2017-12-30] MEDS: DOCUSATE SODIUM 100 MG CAPSULE PO SCH (09:11)
[2017-12-30] MEDS: ATORVASTATIN 80 MG TABLET PO SCH (21:39)
[2017-12-31 05:05] LABS: Eosinophils # 0.1 10*3/uL (0.0-0.87); Eosinophils % 0.6 % (0.00-10.9); Hematocrit 29.2 VOL% (35.7-47.0); Hemoglobin 9.4 GM/DL (12.0-16.0); Immature Granulocytes % 0.7 %; Immature Granulocytes Absolute 0.09 #; Lymphocytes # 2.5 10*3/uL (1.4-4.0); Lymphocytes % 19.3 % (21.3-54.2); Mean Corpuscular HGB Conc 32.2 GM/DL (32-36); Mean Corpuscular Hemoglobin 28 PG (27-34); Mean Corpuscular Volume 87.2 FL (87-102); Mean Platelet Volume 12.7 FL (9.6-12.0); Monocytes % 8.2 % (1.7-12.7); Neutrophils % 71.2 % (38.7-73.9); Platelet Count 244 T/CUMM (130-400); Red Blood Count 3.35 MC/CUMM (3.8-5.5); Red Cell Distribution Width 14.8 % (9.3-17.3); White Blood Count 12.7 T/CUMM (4-12)
[2017-12-31 05:33] LABS: Calcium 8.5 MG/DL (8.5-10.1); Osmolality,Calculated 292.1 MOS/KG (273-304); Potassium 3.2 MMOL/L (3.5-5.1)
[2017-12-31 05:36] LABS: Alanine Aminotransferase 37 U/L (13-56); Albumin 2.4 G/DL (3.4-5.0); Alkaline Phosphatase 91 U/L (45-117); Aspartate Amino Transferase 33 U/L (0-37); Bilirubin,Direct < 0.100 MG/DL (0.0-0.20); Bilirubin,Indirect 0.7 MG/DL (0.0-1.0); Blood Urea Nitrogen 40 MG/DL (7-18); Calcium 8.4 MG/DL (8.5-10.1); Glucose 72 MG/DL (74-106); Osmolality,Calculated 294.8 MOS/KG (273-304); Potassium 3.2 MMOL/L (3.5-5.1); Sodium 144 MMOL/L (136-145); Total Protein 6.2 G/DL (6.4-8.3)
[2017-12-31] MEDS: ASPIRIN EC 81 MG TABLET PO SCH (09:51)
[2017-12-31] MEDS: INSULIN REGULAR 100 UNIT/ML SUBCUT SCH ×4 (09:51→21:36)
[2017-12-31] MEDS: AMIODARONE 200 MG TABLET PO SCH ×2 (09:52→21:28)
[2017-12-31] MEDS: INSULIN GLARGINE 100 UNIT/ML SUBCUT SCH ×2 (09:52→21:29)
[2017-12-31] MEDS: FERROUS SULFATE 325 MG TABLET PO SCH (09:52)
[2017-12-31] MEDS: DOCUSATE SODIUM 100 MG CAPSULE PO SCH (09:52)
[2017-12-31] MEDS: POTASSIUM CHLORIDE 20 MEQ TABLET PO SCH ×2 (09:52→21:28)
[2017-12-31] MEDS: PREGABALIN 100 MG CAPSULE PO SCH (09:53)
[2017-12-31] MEDS: FUROSEMIDE 40 MG TABLET PO SCH (09:53)
[2017-12-31] MEDS: MAGNESIUM OXIDE 400 MG TABLET PO SCH ×2 (09:53→21:28)
[2017-12-31] MEDS: CHLORHEXIDINE 0.12% ORAL RINSE 60 ML BOTTLE SWISH/SPIT SCH ×2 (09:53→21:29)
[2017-12-31] MEDS: PANTOPRAZOLE 40 MG TABLET PO SCH (09:54)
[2017-12-31] MEDS: SERTRALINE 100 MG TABLET PO SCH (09:54)
[2017-12-31] MEDS: predniSONE 10 MG TABLET PO SCH ×2 (09:54→21:28)
[2017-12-31] MEDS: HYDROmorphone 2 MG TABLET PO PRN ×2 (09:54→16:56)
[2017-12-31] MEDS: POTASSIUM CHLORIDE 20 MEQ TABLET PO PRN ×3 (12:36→18:23)
[2017-12-31] MEDS: IBUPROFEN 800 MG TABLET PO PRN (12:36)
[2017-12-31] MEDS ORDERED: MAGNESIUM SULF RIDER 4 GM in PREMIX 1 EACH IV PRN (15:59)
[2017-12-31] MEDS ORDERED: MAGNESIUM SULF RIDER 2 GM in PREMIX 1 EACH IV PRN (15:59)
[2017-12-31] MEDS: ATORVASTATIN 80 MG TABLET PO SCH (21:28)
[2018-01-01] MEDS: HYDROmorphone 2 MG TABLET PO PRN ×3 (01:21→21:22)
[2018-01-01 06:06] LABS: Basophils % 0.1 % (0.0-0.8); Eosinophils # 0.1 10*3/uL (0.0-0.87); Hematocrit 30.1 VOL% (35.7-47.0); Hemoglobin 9.7 GM/DL (12.0-16.0); Immature Granulocytes % 0.7 %; Lymphocytes # 2.6 10*3/uL (1.4-4.0); Lymphocytes % 19.3 % (21.3-54.2); Mean Corpuscular HGB Conc 32.2 GM/DL (32-36); Mean Corpuscular Hemoglobin 28 PG (27-34); Mean Platelet Volume 12.3 FL (9.6-12.0); Monocytes # 0.9 10*3/uL (0.11-0.8); Monocytes % 6.9 % (1.7-12.7); Neutrophils # 9.8 10*3/uL (1.4-7.4); Platelet Count 247 T/CUMM (130-400); Red Blood Count 3.42 MC/CUMM (3.8-5.5); Red Cell Distribution Width 14.8 % (9.3-17.3); White Blood Count 13.6 T/CUMM (4-12)
[2018-01-01 06:33] LABS: Calcium 8.1 MG/DL (8.5-10.1); Osmolality,Calculated 290.4 MOS/KG (273-304); Potassium 3.9 MMOL/L (3.5-5.1)
[2018-01-01] MEDS: INSULIN GLARGINE 100 UNIT/ML SUBCUT SCH ×2 (09:19→21:00)
[2018-01-01] MEDS: INSULIN REGULAR 100 UNIT/ML SUBCUT SCH ×4 (09:19→21:02)
[2018-01-01] MEDS: DOCUSATE SODIUM 100 MG CAPSULE PO SCH (09:20)
[2018-01-01] MEDS: ASPIRIN EC 81 MG TABLET PO SCH (09:20)
[2018-01-01] MEDS: FUROSEMIDE 40 MG TABLET PO SCH (09:20)
[2018-01-01] MEDS: MAGNESIUM OXIDE 400 MG TABLET PO SCH ×2 (09:20→21:02)
[2018-01-01] MEDS: POTASSIUM CHLORIDE 20 MEQ TABLET PO SCH ×2 (09:20→21:04)
[2018-01-01] MEDS: PANTOPRAZOLE 40 MG TABLET PO SCH (09:20)
[2018-01-01] MEDS: PREGABALIN 100 MG CAPSULE PO SCH (09:20)
[2018-01-01] MEDS: FERROUS SULFATE 325 MG TABLET PO SCH ×2 (09:20→09:26)
[2018-01-01] MEDS: predniSONE 10 MG TABLET PO SCH ×2 (09:21→21:03)
[2018-01-01] MEDS: AMIODARONE 200 MG TABLET PO SCH ×2 (09:21→21:03)
[2018-01-01] MEDS: CHLORHEXIDINE 0.12% ORAL RINSE 60 ML BOTTLE SWISH/SPIT SCH ×2 (09:21→21:03)
[2018-01-01] MEDS: SERTRALINE 100 MG TABLET PO SCH (09:21)
[2018-01-01] MEDS: ATORVASTATIN 80 MG TABLET PO SCH (21:03)
[2018-01-02] MEDS: IBUPROFEN 800 MG TABLET PO PRN (02:50)
[2018-01-02 05:32] LABS: Basophils % 0.1 % (0.0-0.8); Eosinophils # 0.1 10*3/uL (0.0-0.87); Eosinophils % 0.8 % (0.00-10.9); Hematocrit 30.3 VOL% (35.7-47.0); Hemoglobin 9.6 GM/DL (12.0-16.0); Immature Granulocytes % 0.9 %; Immature Granulocytes Absolute 0.13 #; Lymphocytes # 2.1 10*3/uL (1.4-4.0); Lymphocytes % 14.9 % (21.3-54.2); Mean Corpuscular HGB Conc 31.7 GM/DL (32-36); Mean Corpuscular Hemoglobin 28 PG (27-34); Mean Corpuscular Volume 87.8 FL (87-102); Mean Platelet Volume 12.6 FL (9.6-12.0); Monocytes % 7.5 % (1.7-12.7); Neutrophils # 10.5 10*3/uL (1.4-7.4); Neutrophils % 75.8 % (38.7-73.9); Platelet Count 266 T/CUMM (130-400); Red Blood Count 3.45 MC/CUMM (3.8-5.5); Red Cell Distribution Width 14.9 % (9.3-17.3); White Blood Count 13.8 T/CUMM (4-12)
[2018-01-02 06:03] LABS: Calcium 8.2 MG/DL (8.5-10.1); Osmolality,Calculated 290.1 MOS/KG (273-304); Potassium 4.1 MMOL/L (3.5-5.1)
[2018-01-02] MEDS: INSULIN REGULAR 100 UNIT/ML SUBCUT SCH ×4 (08:52→22:02)
[2018-01-02] MEDS: INSULIN GLARGINE 100 UNIT/ML SUBCUT SCH ×2 (08:53→21:58)
[2018-01-02] MEDS: PANTOPRAZOLE 40 MG TABLET PO SCH (08:55)
[2018-01-02] MEDS: SERTRALINE 100 MG TABLET PO SCH (08:55)
[2018-01-02] MEDS: AMIODARONE 200 MG TABLET PO SCH ×2 (08:55→21:58)
[2018-01-02] MEDS: DOCUSATE SODIUM 100 MG CAPSULE PO SCH (08:55)
[2018-01-02] MEDS: MAGNESIUM OXIDE 400 MG TABLET PO SCH ×2 (08:55→21:56)
[2018-01-02] MEDS: ASPIRIN EC 81 MG TABLET PO SCH (08:55)
[2018-01-02] MEDS: FERROUS SULFATE 325 MG TABLET PO SCH (08:55)
[2018-01-02] MEDS: predniSONE 10 MG TABLET PO SCH ×2 (08:55→21:59)
[2018-01-02] MEDS: POTASSIUM CHLORIDE 20 MEQ TABLET PO SCH ×2 (08:55→21:58)
[2018-01-02] MEDS: PREGABALIN 100 MG CAPSULE PO SCH (08:55)
[2018-01-02] MEDS: FUROSEMIDE 40 MG TABLET PO SCH (08:55)
[2018-01-02] MEDS: CHLORHEXIDINE 0.12% ORAL RINSE 60 ML BOTTLE SWISH/SPIT SCH ×2 (08:59→21:59)
[2018-01-02] MEDS: HYDROmorphone 2 MG TABLET PO PRN ×2 (16:57→23:43)
[2018-01-02] MEDS: ATORVASTATIN 80 MG TABLET PO SCH (21:58)
[2018-01-03] MEDS: DIAZEPAM 5 MG TABLET PO PRN ×2 (01:48→20:26)
[2018-01-03] MEDS: IBUPROFEN 800 MG TABLET PO PRN (02:54)
[2018-01-03 05:13] LABS: Basophils % 0.1 % (0.0-0.8); Eosinophils # 0.1 10*3/uL (0.0-0.87); Eosinophils % 0.4 % (0.00-10.9); Hematocrit 29.6 VOL% (35.7-47.0); Hemoglobin 9.3 GM/DL (12.0-16.0); Immature Granulocytes % 1.1 %; Immature Granulocytes Absolute 0.16 #; Lymphocytes # 1.5 10*3/uL (1.4-4.0); Lymphocytes % 10.7 % (21.3-54.2); Mean Corpuscular HGB Conc 31.4 GM/DL (32-36); Mean Corpuscular Hemoglobin 28 PG (27-34); Mean Corpuscular Volume 89.4 FL (87-102); Monocytes # 0.9 10*3/uL (0.11-0.8); Monocytes % 6.2 % (1.7-12.7); Neutrophils # 11.8 10*3/uL (1.4-7.4); Neutrophils % 81.5 % (38.7-73.9); Platelet Count 277 T/CUMM (130-400); Red Blood Count 3.31 MC/CUMM (3.8-5.5); Red Cell Distribution Width 14.9 % (9.3-17.3); White Blood Count 14.5 T/CUMM (4-12)
[2018-01-03 05:29] LABS: Calcium 8.3 MG/DL (8.5-10.1); Osmolality,Calculated 287.3 MOS/KG (273-304); Potassium 4.8 MMOL/L (3.5-5.1)
[2018-01-03] MEDS: INSULIN REGULAR 100 UNIT/ML SUBCUT SCH ×4 (08:56→20:29)
[2018-01-03] MEDS: INSULIN GLARGINE 100 UNIT/ML SUBCUT SCH ×2 (08:57→20:26)
[2018-01-03] MEDS: MAGNESIUM OXIDE 400 MG TABLET PO SCH ×2 (08:57→20:25)
[2018-01-03] MEDS: DOCUSATE SODIUM 100 MG CAPSULE PO SCH (08:58)
[2018-01-03] MEDS: PANTOPRAZOLE 40 MG TABLET PO SCH (08:58)
[2018-01-03] MEDS: POTASSIUM CHLORIDE 20 MEQ TABLET PO SCH ×2 (08:58→20:26)
[2018-01-03] MEDS: FERROUS SULFATE 325 MG TABLET PO SCH (08:58)
[2018-01-03] MEDS: AMIODARONE 200 MG TABLET PO SCH ×2 (08:58→20:26)
[2018-01-03] MEDS: ASPIRIN EC 81 MG TABLET PO SCH (08:58)
[2018-01-03] MEDS: PREGABALIN 100 MG CAPSULE PO SCH (08:58)
[2018-01-03] MEDS: FUROSEMIDE 40 MG TABLET PO SCH (08:59)
[2018-01-03] MEDS: glyBURIDE 5 MG TABLET PO SCH (09:03)
[2018-01-03] MEDS: predniSONE 10 MG TABLET PO SCH ×2 (09:04→20:26)
[2018-01-03] MEDS: CHLORHEXIDINE 0.12% ORAL RINSE 60 ML BOTTLE SWISH/SPIT SCH ×2 (09:04→20:25)
[2018-01-03] MEDS: SERTRALINE 100 MG TABLET PO SCH (09:05)
[2018-01-03] MEDS: POLYETHYLENE GLYCOL POWDER 17 GM PACK PO SCH (13:29)
[2018-01-03] MEDS: APIXABAN 5 MG TABLET PO SCH ×2 (13:30→20:26)
[2018-01-03] MEDS: CARVEDILOL 3.125 MG TABLET PO SCH ×2 (13:30→20:26)
[2018-01-03] MEDS: HYDROmorphone 2 MG TABLET PO PRN (14:38)
[2018-01-03] MEDS: ATORVASTATIN 80 MG TABLET PO SCH (20:26)
[2018-01-04 05:43] LABS: Basophils % 0.2 % (0.0-0.8); Eosinophils # 0.1 10*3/uL (0.0-0.87); Eosinophils % 0.6 % (0.00-10.9); Hemoglobin 9.8 GM/DL (12.0-16.0); Immature Granulocytes % 0.9 %; Lymphocytes # 3.2 10*3/uL (1.4-4.0); Lymphocytes % 14.9 % (21.3-54.2); Mean Corpuscular HGB Conc 31.6 GM/DL (32-36); Mean Corpuscular Hemoglobin 29 PG (27-34); Mean Corpuscular Volume 90.6 FL (87-102); Mean Platelet Volume 12.5 FL (9.6-12.0); Monocytes # 1.5 10*3/uL (0.11-0.8); Neutrophils # 16.4 10*3/uL (1.4-7.4); Neutrophils % 76.4 % (38.7-73.9); Platelet Count 356 T/CUMM (130-400); Red Blood Count 3.42 MC/CUMM (3.8-5.5); Red Cell Distribution Width 15.1 % (9.3-17.3); White Blood Count 21.4 T/CUMM (4-12)
[2018-01-04 06:02] LABS: Calcium 8.3 MG/DL (8.5-10.1); Osmolality,Calculated 289.1 MOS/KG (273-304); Potassium 4.7 MMOL/L (3.5-5.1)
[2018-01-04 06:04] LABS: Calcium 8.2 MG/DL (8.5-10.1)
[2018-01-04 06:24] LABS: Eosinophils 1 % (0-10); Lymphocytes 13 % (20-55); Platelet Estimate Normal; Segmented Neutrophils 81 % (50-85); Stomatocytes Slight; Total Cells Counted 100
[2018-01-04] MEDS ORDERED: predniSONE 20 MG TABLET ONE (08:09)
[2018-01-04] MEDS: INSULIN GLARGINE 100 UNIT/ML SUBCUT SCH ×2 (09:12→22:29)
[2018-01-04] MEDS: PANTOPRAZOLE 40 MG TABLET PO SCH (09:13)
[2018-01-04] MEDS: SERTRALINE 100 MG TABLET PO SCH (09:13)
[2018-01-04] MEDS: FUROSEMIDE 40 MG TABLET PO SCH (09:13)
[2018-01-04] MEDS: AMIODARONE 200 MG TABLET PO SCH ×2 (09:13→20:38)
[2018-01-04] MEDS: FERROUS SULFATE 325 MG TABLET PO SCH (09:13)
[2018-01-04] MEDS: APIXABAN 5 MG TABLET PO SCH ×2 (09:13→20:38)
[2018-01-04] MEDS: ASPIRIN EC 81 MG TABLET PO SCH (09:13)
[2018-01-04] MEDS: MAGNESIUM OXIDE 400 MG TABLET PO SCH ×2 (09:14→20:38)
[2018-01-04] MEDS: POTASSIUM CHLORIDE 20 MEQ TABLET PO SCH ×2 (09:14→20:39)
[2018-01-04] MEDS: DOCUSATE SODIUM 100 MG CAPSULE PO SCH (09:14)
[2018-01-04] MEDS: PREGABALIN 100 MG CAPSULE PO SCH (09:14)
[2018-01-04] MEDS: glyBURIDE 5 MG TABLET PO SCH (09:14)
[2018-01-04] MEDS: CARVEDILOL 3.125 MG TABLET PO SCH ×2 (09:15→20:38)
[2018-01-04] MEDS: CHLORHEXIDINE 0.12% ORAL RINSE 60 ML BOTTLE SWISH/SPIT SCH ×2 (09:19→20:42)
[2018-01-04] MEDS: predniSONE 10 MG TABLET PO SCH ×2 (09:19→20:38)
[2018-01-04] MEDS: POLYETHYLENE GLYCOL POWDER 17 GM PACK PO SCH (09:19)
[2018-01-04] MEDS: INSULIN REGULAR 100 UNIT/ML SUBCUT SCH ×4 (09:20→22:54)
[2018-01-04] MEDS: HYDROmorphone 2 MG TABLET PO PRN ×2 (11:08→17:53)
[2018-01-04] MEDS ORDERED: POLYVINYL ALCOHOL 1.4% OPH SOLN 15 ML BOTTLE BOTH EYES PRN (16:19)
[2018-01-04] MEDS: ATORVASTATIN 80 MG TABLET PO SCH (20:38)
[2018-01-05 05:33] LABS: Basophils % 0.1 % (0.0-0.8); Eosinophils % 0.3 % (0.00-10.9); Hematocrit 28.2 VOL% (35.7-47.0); Hemoglobin 8.9 GM/DL (12.0-16.0); Immature Granulocytes % 0.7 %; Lymphocytes # 1.7 10*3/uL (1.4-4.0); Lymphocytes % 11.4 % (21.3-54.2); Mean Corpuscular HGB Conc 31.6 GM/DL (32-36); Mean Corpuscular Hemoglobin 29 PG (27-34); Mean Platelet Volume 12.7 FL (9.6-12.0); Monocytes # 0.8 10*3/uL (0.11-0.8); Monocytes % 5.4 % (1.7-12.7); Neutrophils # 12.2 10*3/uL (1.4-7.4); Neutrophils % 82.1 % (38.7-73.9); Platelet Count 250 T/CUMM (130-400); Red Cell Distribution Width 15.2 % (9.3-17.3); White Blood Count 14.9 T/CUMM (4-12)
[2018-01-05 05:55] LABS: Calcium 7.7 MG/DL (8.5-10.1); Osmolality,Calculated 290.5 MOS/KG (273-304); Potassium 5.3 MMOL/L (3.5-5.1)
[2018-01-05] MEDS ORDERED: LEVOFLOXACIN 500 MG TABLET PO ONE (09:00)
[2018-01-05] MEDS: HYDROmorphone 2 MG TABLET PO PRN ×2 (09:37→21:01)
[2018-01-05] MEDS: glyBURIDE 5 MG TABLET PO SCH (09:38)
[2018-01-05] MEDS: INSULIN GLARGINE 100 UNIT/ML SUBCUT SCH ×2 (09:38→21:00)
[2018-01-05] MEDS: INSULIN REGULAR 100 UNIT/ML SUBCUT SCH ×3 (09:39→16:32)
[2018-01-05] MEDS ORDERED: FUROSEMIDE 40 MG TABLET PO ONE (10:00)
[2018-01-05] MEDS ORDERED: metOLazone 5 MG TABLET PO SCH (10:00)
[2018-01-05] MEDS: DOCUSATE SODIUM 100 MG CAPSULE PO SCH (10:25)
[2018-01-05] MEDS: PREGABALIN 100 MG CAPSULE PO SCH (10:25)
[2018-01-05] MEDS: ASPIRIN EC 81 MG TABLET PO SCH (10:25)
[2018-01-05] MEDS: APIXABAN 5 MG TABLET PO SCH ×2 (10:25→21:02)
[2018-01-05] MEDS: FERROUS SULFATE 325 MG TABLET PO SCH (10:26)
[2018-01-05] MEDS: PANTOPRAZOLE 40 MG TABLET PO SCH (10:26)
[2018-01-05] MEDS: SERTRALINE 100 MG TABLET PO SCH (10:26)
[2018-01-05] MEDS: CARVEDILOL 3.125 MG TABLET PO SCH ×2 (10:26→21:01)
[2018-01-05] MEDS: MAGNESIUM OXIDE 400 MG TABLET PO SCH ×2 (10:27→21:01)
[2018-01-05] MEDS: AMIODARONE 200 MG TABLET PO SCH ×2 (10:27→21:00)
[2018-01-05] MEDS: predniSONE 10 MG TABLET PO SCH ×2 (10:27→21:02)
[2018-01-05] MEDS: POLYETHYLENE GLYCOL POWDER 17 GM PACK PO SCH (10:32)
[2018-01-05] MEDS: CHLORHEXIDINE 0.12% ORAL RINSE 60 ML BOTTLE SWISH/SPIT SCH ×2 (10:33→21:02)
[2018-01-05] MEDS: FUROSEMIDE 40 MG TABLET PO SCH (10:47)
[2018-01-05] MEDS: POTASSIUM CHLORIDE 20 MEQ TABLET PO SCH (12:09)
[2018-01-05] MEDS: ATORVASTATIN 80 MG TABLET PO SCH (21:01)
[2018-01-06] MEDS: INSULIN REGULAR 100 UNIT/ML SUBCUT SCH ×5 (01:17→21:00)
[2018-01-06] MEDS: IBUPROFEN 800 MG TABLET PO PRN (01:30)
[2018-01-06 05:13] LABS: Basophils % 0.1 % (0.0-0.8); Eosinophils # 0.1 10*3/uL (0.0-0.87); Eosinophils % 0.6 % (0.00-10.9); Hematocrit 28.9 VOL% (35.7-47.0); Hemoglobin 9.1 GM/DL (12.0-16.0); Immature Granulocytes % 0.7 %; Immature Granulocytes Absolute 0.12 #; Lymphocytes % 12.6 % (21.3-54.2); Mean Corpuscular HGB Conc 31.5 GM/DL (32-36); Mean Corpuscular Hemoglobin 28 PG (27-34); Mean Platelet Volume 12.4 FL (9.6-12.0); Monocytes % 6.1 % (1.7-12.7); Neutrophils # 12.8 10*3/uL (1.4-7.4); Neutrophils % 79.9 % (38.7-73.9); Platelet Count 274 T/CUMM (130-400); Red Blood Count 3.21 MC/CUMM (3.8-5.5); White Blood Count 16.1 T/CUMM (4-12)
[2018-01-06] MEDS: HYDROmorphone 2 MG TABLET PO PRN (05:35)
[2018-01-06 05:38] LABS: Calcium 8.1 MG/DL (8.5-10.1); Osmolality,Calculated 288.4 MOS/KG (273-304); Potassium 4.2 MMOL/L (3.5-5.1)
[2018-01-06] MEDS: PANTOPRAZOLE 40 MG TABLET PO SCH (09:49)
[2018-01-06] MEDS: MAGNESIUM OXIDE 400 MG TABLET PO SCH ×2 (09:49→20:59)
[2018-01-06] MEDS: INSULIN GLARGINE 100 UNIT/ML SUBCUT SCH ×2 (09:49→21:01)
[2018-01-06] MEDS: glyBURIDE 5 MG TABLET PO SCH (09:49)
[2018-01-06] MEDS: PREGABALIN 100 MG CAPSULE PO SCH (09:49)
[2018-01-06] MEDS: FUROSEMIDE 40 MG TABLET PO SCH (09:50)
[2018-01-06] MEDS: LEVOFLOXACIN 250 MG TABLET PO SCH (09:50)
[2018-01-06] MEDS: CARVEDILOL 3.125 MG TABLET PO SCH ×2 (09:50→21:00)
[2018-01-06] MEDS: SERTRALINE 100 MG TABLET PO SCH (09:50)
[2018-01-06] MEDS: POLYETHYLENE GLYCOL POWDER 17 GM PACK PO SCH (09:50)
[2018-01-06] MEDS: DOCUSATE SODIUM 100 MG CAPSULE PO SCH (09:50)
[2018-01-06] MEDS: predniSONE 10 MG TABLET PO SCH ×2 (09:50→21:00)
[2018-01-06] MEDS: FERROUS SULFATE 325 MG TABLET PO SCH (09:50)
[2018-01-06] MEDS: APIXABAN 5 MG TABLET PO SCH ×2 (09:50→20:59)
[2018-01-06] MEDS: AMIODARONE 200 MG TABLET PO SCH ×2 (09:50→20:59)
[2018-01-06] MEDS: ASPIRIN EC 81 MG TABLET PO SCH (09:50)
[2018-01-06] MEDS: CHLORHEXIDINE 0.12% ORAL RINSE 60 ML BOTTLE SWISH/SPIT SCH ×2 (10:00→21:02)
[2018-01-06] MEDS: traMADol 50 MG TABLET PO PRN ×2 (14:43→20:59)
[2018-01-06] MEDS: ATORVASTATIN 80 MG TABLET PO SCH (20:59)
[2018-01-07] MEDS: INSULIN REGULAR 100 UNIT/ML SUBCUT SCH ×2 (08:43→11:46)
[2018-01-07] MEDS ORDERED: AMIODARONE 200 MG TABLET PO SCH (09:00)
[2018-01-07] MEDS: APIXABAN 5 MG TABLET PO SCH (09:22)
[2018-01-07] MEDS: CARVEDILOL 3.125 MG TABLET PO SCH (09:22)
[2018-01-07] MEDS: PREGABALIN 100 MG CAPSULE PO SCH (09:22)
[2018-01-07] MEDS: MAGNESIUM OXIDE 400 MG TABLET PO SCH (09:22)
[2018-01-07] MEDS: predniSONE 10 MG TABLET PO SCH (09:22)
[2018-01-07] MEDS: DOCUSATE SODIUM 100 MG CAPSULE PO SCH (09:22)
[2018-01-07] MEDS: FUROSEMIDE 40 MG TABLET PO SCH (09:22)
[2018-01-07] MEDS: FERROUS SULFATE 325 MG TABLET PO SCH (09:22)
[2018-01-07] MEDS: glyBURIDE 5 MG TABLET PO SCH (09:22)
[2018-01-07] MEDS: LEVOFLOXACIN 250 MG TABLET PO SCH (09:22)
[2018-01-07] MEDS: PANTOPRAZOLE 40 MG TABLET PO SCH (09:23)
[2018-01-07] MEDS: SERTRALINE 100 MG TABLET PO SCH (09:23)
[2018-01-07] MEDS: ASPIRIN EC 81 MG TABLET PO SCH (09:23)
[2018-01-07] MEDS: POLYETHYLENE GLYCOL POWDER 17 GM PACK PO SCH (09:23)
[2018-01-07] MEDS: CHLORHEXIDINE 0.12% ORAL RINSE 60 ML BOTTLE SWISH/SPIT SCH (09:23)
[2018-01-07] MEDS: INSULIN GLARGINE 100 UNIT/ML SUBCUT SCH (09:34)
[2018-01-07 11:40] VITALS: BP 134/79
[2018-01-07] MEDS: DIAZEPAM 5 MG TABLET PO PRN (13:35)
== END 2018-01-07 14:25 | disposition home health service (06) | DRG 233 ==
LOC: N.CL 11:09 → N.TELES 16:45 → N.CVR 12-24 07:48 → N.ICU 12-25 13:32 → N.TELES 12-27 10:09 → N.ICU 12-27 15:37 → N.TELES 12-29 15:25
PROVIDERS: ADMIT Internal Medicine Cardiovascular Disease; ATTEND Internal Medicine Cardiovascular Disease
PROC: CLCCHCL (ICD-10-PCS; 2017-12-20 14:45)

== ENCOUNTER 2018-01-18 18:58 | Inpatient (IN) ==
[2018-01-19 03:26] VITALS: BP 72/42
== END 2018-01-19 01:48 | disposition expired | DRG 208 ==
LOC: EDBD → EDUNIT# → N.ED 18:58 → N.EDINP 20:07 → N.CC 21:27
PROVIDERS: ADMIT Internal Medicine Cardiovascular Disease; ATTEND Internal Medicine Cardiovascular Disease